=== PATIENT | male | born 1970 | race Hispanic/Latino ===

== ENCOUNTER 2019-08-01 10:38 | Emergency (ER) | payer OTHER ==
--- NOTE | 2019-08-01 11:18 | RAD ---
Chest one view HISTORY: Cough. Dyspnea. Fever. FINDINGS: Cardiac silhouette is magnified by projection. Pulmonary vasculature is unremarkable. Mediastinum is midline. No lobar consolidation or evidence of pneumothorax. site leader leads ove rlie the chest. IMPRESSION : No active cardiopulmonary abnormalities are demonstrated.
[2019-08-01 12:21] LABS: Hemoglobin 13.9 g/dL (14.0-18.0); Mean Corpuscular HGB CONC 34.5 g/dL (32.0-36.0); Mean Corpuscular Hemoglobin 31.2 pg (27.0-31.0); Mean Corpuscular Volume 90.5 fL (78.0-98.0); Mean Platelet Volume 7.5 fL (7.4-10.4); Platelet Count 200 thou/uL (130-400); RBC Distribution Width 11.1 % (11.5-14.5); Red Blood Cell (RBC) Count 4.45 mill/uL (4.70-6.10); White Blood Cell (WBC) Count 8.2 thou/uL (4.8-10.8)
[2019-08-01 12:22] LABS: #Monocytes 0.3 thou/uL (0.11-0.59); #Neutrophils 7.4 thou/uL (1.40-6.50); %Eosinophils 0.1 % (0.0-10.0); %Lymphocytes 5.9 % (21.0-51.0); %Monocytes 4.3 % (0.0-10.0); %Neutrophils 89.7 % (42.0-75.0); MDiff Complete? YES
[2019-08-01 12:36] LABS: ALT (SGPT) 42 U/L (8-55); AST (SGOT) 40 U/L (5-34); Albumin 3.9 g/dL (3.5-5.0); Alkaline Phosphatase 51 U/L (40-110); Anion Gap 13 mmol/L (10-20); BUN (Urea Nitrogen) 10 mg/dL (8.9-20.6); Bilirubin, Total 0.4 mg/dL (0.2-1.2); CK (CPK) 304 U/L (30-200); Calc. Creatinine Clearance 0 mL/min (70-130); Calcium 8.3 mg/dL (7.8-10.44); Carbon Dioxide 26 mmol/L (22-29); Chloride 99 mmol/L (98-107); Estimated GFR-MDRD 84; Globulin 3.4 g/dL (2.4-3.5); Glucose 176 mg/dL (70-105); Lipase 20 U/L (8-78); Potassium 3.2 mmol/L (3.5-5.1); Protein, Total 7.3 g/dL (6.0-8.3); Sodium 135 mmol/L (136-145)
[2019-08-01 18:04] LABS: SARS-CoV-2 MS2 Positive; SARS-CoV-2 N Gene Positive; SARS-CoV-2 S Gene Positive; SARS-CoV-2 orf1ab Positive
--- NOTE | 2019-08-03 14:24 | EKG ---
Test Reason : Blood Pressure : / mmHG Vent. Rate : 126 BPM Atrial Rate : 126 BPM P-R Int : 152 ms QRS Dur : 082 ms QT Int : 300 ms P-R-T Axes : 043 028 028 degrees QTc Int : 434 ms Sinus tachycardia Possible Left atrial enlargement Inferior infarct , age undetermined Abnormal ECG Confirmed by YO PARHAM, SYD ([id number]), editor trade journal VICTORIANO MUNOZ ([id number]) on 08/03/2019 2:23:31 PM Referred By: Confirmed By:SYD RAM MD
== END 2019-08-01 13:00 | disposition home or self-care (01) ==
LOC: MERGE 10:38 → ERS 10:38
DX: U07.1 COVID-19 (principal); R50.9 Fever, unspecified; E86.0 Dehydration
CPT/HCPCS: 71045; 80053; 82550; 83690; 83880; 84484; 85025; 85379; 87635; 93005; 96360; U0002

== ENCOUNTER 2019-08-05 10:46 | Inpatient (IN) | payer OTHER ==
[2019-08-05] MEDS ORDERED: Succinylcholine Chloride 20 MG/ML 10 ml SYRINGE FS ONE (10:55)
[2019-08-05] MEDS ORDERED: Fentanyl 100 MCG/2 ML VIAL ONE ×2 (11:01→11:02)
[2019-08-05] MEDS ORDERED: fentaNYL Citrate/PF 2,000 MCG in Sodium Chloride 0.9% 60 ML IV SCH (11:01)
[2019-08-05] MEDS ORDERED: Rocuronium Bromide 10 MG/ML (10ML VIAL) ONE ×2 (11:10→11:11)
[2019-08-05 11:11] LABS: #Basophils 0.1 thou/uL (0.0-0.2); #Lymphocytes 1.7 thou/uL (1.20-3.40); #Neutrophils 14.1 thou/uL (1.40-6.50); %Basophils 0.7 % (0.0-1.0); %Eosinophils 0.2 % (0.0-10.0); %Lymphocytes 10.2 % (21.0-51.0); %Monocytes 6.1 % (0.0-10.0); %Neutrophils 82.8 % (42.0-75.0); Hemoglobin 13.4 g/dL (14.0-18.0); Mean Corpuscular HGB CONC 33.3 g/dL (32.0-36.0); Mean Corpuscular Hemoglobin 31.1 pg (27.0-31.0); Mean Corpuscular Volume 93.4 fL (78.0-98.0); Mean Platelet Volume 7.7 fL (7.4-10.4); Platelet Count 401 thou/uL (130-400); RBC Distribution Width 11.8 % (11.5-14.5)
[2019-08-05] MEDS ORDERED: Rocuronium Bromide 50 MG/5 ML VIAL ONE (11:11)
[2019-08-05 11:27] LABS: Actual Bicarbonate (HCO3a) 25.9 mEq/L (22-28); Analyzer IN Cardio ER; CO2 Tension 57.6 mmHg (35.0-45.0); Calcium, Ionized 1.07 mmol/L (1.12-1.30); Carboxyhemoglobin (COHb) 0.6 gm% (0.0-3.0); Hemoglobin (Hb) 13.8 g/dL (14.0-18.0); Potassium - ABG Lab 4.04 mmol/L (3.70-5.30); pH, Arterial 7.27 (7.35-7.45)
[2019-08-05 11:29] LABS: O2 Tension (PaO2), arterial 51.4 mmHg (80.0-100.0); Puncture Site RRA
[2019-08-05 11:31] LABS: ALT (SGPT) 56 U/L (8-55); AST (SGOT) 47 U/L (5-34); Albumin 3.4 g/dL (3.5-5.0); Alkaline Phosphatase 73 U/L (40-110); Anion Gap 16 mmol/L (10-20); BUN (Urea Nitrogen) 20 mg/dL (8.9-20.6); Bilirubin, Total 0.6 mg/dL (0.2-1.2); Calc. Creatinine Clearance 0 mL/min (70-130); Carbon Dioxide 26 mmol/L (22-29); Chloride 103 mmol/L (98-107); Estimated GFR-MDRD 70; Globulin 3.5 g/dL (2.4-3.5); Glucose 155 mg/dL (70-105); Potassium 3.9 mmol/L (3.5-5.1); Protein, Total 6.9 g/dL (6.0-8.3); Sodium 141 mmol/L (136-145)
--- NOTE | 2019-08-05 11:31 | RAD ---
EXAM: CHEST ONE VIEW HISTORY: Shortness of breath. Positive COVID-19 COMPARISON: None FINDINGS: Endotracheal tube is noted in place with tip overlying the T5 vertebral and above the level of the ca sandy. Cardiac silhouette is magnified by projection. There are diffuse increased alveolar opacities seen throughout the right lung with alveolar opacities also seen in a left perihilar location primari ly in the left midlung zone. Findings are worrisome for viral pneumonitis. Atypical pneumonia is a differential consideration. No pleural fluid is seen. The osseous structures are intact. IMPRESSION: 1. Findings suggestive of viral pneumonitis. Atypical pneumonia is a possibility. 2. Endotracheal tube noted in place.
[2019-08-05 11:42] LABS: Actual Bicarbonate (HCO3a) 26.3 mEq/L (22-28); Analyzer IN Cardio ER; Base Excess (BEa) -0.8 mEq/L (-2.0 to +3.0); CO2 Tension 53.6 mmHg (35.0-45.0); Calcium, Ionized 1.07 mmol/L (1.12-1.30); Carboxyhemoglobin (COHb) 0.6 gm% (0.0-3.0); Hemoglobin (Hb) 13.6 g/dL (14.0-18.0); Potassium - ABG Lab 3.93 mmol/L (3.70-5.30); pH, Arterial 7.31 (7.35-7.45)
[2019-08-05 11:43] LABS: O2 Tension (PaO2), arterial 58.1 mmHg (80.0-100.0); Puncture Site LRA
--- NOTE | 2019-08-05 12:06 | PDOC.FPRHP ---
Addendum entered and electronically signed by Queenie Cortes MD 08/05/19 18:03 : Unable to obtain PMH: Unknown FHx: Unknown Social: Unknown Original Note: - History of Present Illness Chief Complaint: COVID Positive, AMS History of Present Illness: Pt is a 49 yo male who tested positive for COVID on 08/01/19 who presents with altered mental status, worsening shortness of breath. He was noted by family to have fevers since his positive test. He was found to be altered this morning and family decided to call EMS. EMS noted him to be febrile, 101.7, and initially 92% no RA. In route he decompensated to sats of 61%. EMS placed non-rebreather increasing sats to 91%. In ED he had sats drop to 41% requiring intubation. In the ED pt was fluid resuscitated, tylenol adminstered, and azithromycin initiated. PCP: [facility] Call - Allergies/Adverse Reactions Allergies Allergy/AdvReac Type Severity Reaction Status Date / Time No Known Allergies Allergy Unverified 08/05/19 14:28 - History PMHx: PSHx: FHx: Social: - Review of Systems ROS unobtainable: due to endotracheal tube - Vital signs BP: 96/75, MAP: 82, Pulse: 95, Resp: VENT, Temp: 99.1 (Criticore Temp), Pain: UTR, O2 sat: 90 on (Ventilator), Time: 08/05/2019 13:16. Wt: 82kg FMR H&P: Results - Labs Result Diagrams: 08/05/19 10:48 08/05/19 10:48 Lab results: WBC 17.0 thou/uL (4.8-10.8) H 08/05/19 10:48 Hgb 13.4 g/dL (14.0-18.0) L 08/05/19 10:48 Hct 40.2 % (42.0-52.0) L 08/05/19 10:48 MCV 93.4 fL (78.0-98.0) 08/05/19 10:48 Plt Count 401 thou/uL (130-400) H 08/05/19 10:48 Neutrophils % 82.8 % (42.0-75.0) H 08/05/19 10:48 ABG pH 7.31 (7.35-7.45) L 08/05/19 11:29 ABG pCO2 53.6 mmHg (35.0-45.0) H 08/05/19 11:29 ABG pO2 58.1 mmHg (80.0-100.0) L* 08/05/19 11:29 Sodium 141 mmol/L (136-145) 08/05/19 10:48 Potassium 3.9 mmol/L (3.5-5.1) 08/05/19 10:48 Chloride 103 mmol/L (98-107) 08/05/19 10:48 Carbon Dioxide 26 mmol/L (22-29) 08/05/19 10:48 BUN 20 mg/dL (8.9-20.6) 08/05/19 10:48 Creatinine 1.11 mg/dL (0.7-1.3) 08/05/19 10:48 Glucose 155 mg/dL (70-105) H 08/05/19 10:48 Lactic Acid 2.7 mmol/L (0.5-2.2) H 08/05/19 10:48 Calcium 8.0 mg/dL (7.8-10.44) 08/05/19 10:48 Total Bilirubin 0.6 mg/dL (0.2-1.2) 08/05/19 10:48 AST 47 U/L (5-34) H 08/05/19 10:48 ALT 56 U/L (8-55) H 08/05/19 10:48 Alkaline Phosphatase 73 U/L (40-110) 08/05/19 10:48 Serum Total Protein 6.9 g/dL (6.0-8.3) 08/05/19 10:48 Albumin 3.4 g/dL (3.5-5.0) L 08/05/19 10:48 - Radiology Interpretation Chest x-ray Status: image reviewed by me, report reviewed by me Additional comment: bilateraly increased alveolar opacities suggestive of viral pneumonitis FMR H&P: A/P - Problem List (1) COVID-19 Current Visit: Yes Status: Acute Code(s): U07.1 - COVID-19 (2) Acute respiratory failure with hypoxia and hypercapnia Current Visit: Yes Status: Acute Code(s): J96.01 - ACUTE RESPIRATORY FAILURE WITH HYPOXIA; J96.02 - ACUTE RESPIRATORY FAILURE WITH HYPERCAPNIA - Plan Pt is a 49 yo with acute respiratory decompensation w/ hypoxia, hypercapnia and altered mental status: # COVID Positive - start hydroxychloroquine, azithromycin, ceftriaxone - will initiate anticoagulation based on D-Dimer - 30 cc/kg initiated in ED - tylenol prn - monitor kidney function, D-Dimer, CRP; CXR is suggestive of viral pneumonitis # Acute Respiratory Failure w/ Hypoxia and Hypercapnia - pt currently intubated - admit to CCU - Consider initiation of steroids # Metabolic Acidosis 2/2 Lactic Acidosis, Hypercapnia - fluid resuscitate - ventilator support - trend lactic acid # Transaminitis - trend # Hyperglycemia - start protocol # Leukocytosis - monitor resolution with current treatment Fluids: Diet: NPO Code: VTE: lovenox prophylactic dose Dispo: Admit to CCU for > 48 hour stay Addendum - Attending - Attending Attestation Date/Time: 08/05/19 8863 I personally evaluated the patient and discussed the management with Dr. Wilder /Sebastian. I agree with the History, Examination, Assessment and Plan documented above with any addition or exceptions noted below. Patient is 49 yo M with no known PMHx presenting with hypoxemia and AMS. History obtained from ER records. Patient had been feeling unwell for about the last 7-9 day. Had COVID testing performed on 07/31 that resulted as positive. This morning, became acutely dyspneic and had AMS. EMS found patient to have hypoxia and transferred here where sats noted to be in 40s%. Patient intubated for acute hypoxemic respiratory failure 2/2 COVID-19 viral pneumonia. He was also febrile on admission. Sats improved to 90s% on 100%FiO2, PEEP 10. Lab evaluation shows highly elevated CRP, D-Dimer. Elevated AST/ALT. Normal renal function at this time. CXR substantially worsened since previous, showing bilateral interstitial infiltrates with some cannonball appearance. Patient will be admitted to CCU, trend inflammatory markers. Vent per Pulm. Rocephin, Azithro, Plaquenil, Lovenox 40mg BID for increased anticoagulation given his rising D-Dimer and concern for future thrombosis, will check Xa level tomorrow. Will attempt to obtain convalescent plasma. Further mgmt pending clinical course and Pulm recommendations regarding other therapies such as Tocilizumab. Will discuss case with family and attempt to obtain further information regarding illness progression.
[2019-08-05] MEDS ORDERED: Hydroxychloroquine Sulfate 200 MG TAB PO SCH (12:15)
[2019-08-05] MEDS ORDERED: cefTRIAXone\\ROCEPHIN 1 GM VIAL ONE (12:51)
[2019-08-05 12:54] LABS: INR-International Normal Ratio 1.2; Prothrombin Time 14.8 SEC (12.0-14.7)
[2019-08-05 13:10] LABS: D-Dimer Test 14.4 *mcg/mL (0.27-0.43)
[2019-08-05] MEDS ORDERED: Ventilator Sedation Protocol 1 EACH FS SCH (13:37)
[2019-08-05] MEDS ORDERED: Tocilizumab 400 MG in Sodium Chloride 0.9% 80 ML IV SCH (13:45)
[2019-08-05] MEDS ORDERED: Lorazepam 2 MG/ML VIAL ONE (14:02)
[2019-08-05] MEDS ORDERED: Vecuronium 10 MG VIAL ONE (14:02)
[2019-08-05] MEDS ORDERED: Sterile Water 10 ML ONE (14:03)
[2019-08-05 14:04] LABS: Lactic Acid 2.1 mmol/L (0.5-2.2)
[2019-08-05] MEDS ORDERED: Propofol BOLUS 1,000 MG/100 ML VIAL IV PRN (14:12)
[2019-08-05] MEDS ORDERED: Fentanyl BOLUS 250 ML IVPB PRN (14:12)
[2019-08-05] MEDS ORDERED: Morphine 2 MG/ML SYRINGE SLOW IVP PRN (14:12)
[2019-08-05] MEDS ORDERED: Acetaminophen 325 MG TAB PO PRN (14:18)
[2019-08-05] MEDS ORDERED: Azithromycin 500 MG in Sodium Chloride 0.9% 250 ML 250 ML IVPB SCH ×2 (14:30→18:22)
[2019-08-05 15:35] LABS: Actual Bicarbonate (HCO3a) 23.9 mEq/L (22-28); CO2 Tension 40.6 mmHg (35.0-45.0); Calcium, Ionized 1.02 mmol/L (1.12-1.30); Carboxyhemoglobin (COHb) 1.1 gm% (0.0-3.0); Hemoglobin (Hb) 14.3 g/dL (14.0-18.0); O2 Tension (PaO2), arterial 63.5 mmHg (80.0-100.0); Potassium - ABG Lab 4.38 mmol/L (3.70-5.30); Puncture Site RRA; pH, Arterial 7.39 (7.35-7.45)
[2019-08-05] MEDS: Hydroxychloroquine Sulfate 400 MG, Simple Syrup 8 ML, Water For Irrigation 8 ML PER TUBE SCH ×2 (15:46→20:44)
[2019-08-05] MEDS ORDERED: Acetaminophen 650 MG Suppository PR PRN (18:26)
--- NOTE | 2019-08-05 18:49 | PDOC.BPN ---
- Brief Progress Note Called (with help of language line): She confirmed that patient today is day 14 of symptoms starting with fever. 1 week of cough. SOB two days ago when he went to ER. No known travel or COVID+ exposure. Confirmed full code status. PMH: Denies Meds: Not on any chronically but had been taking antibiotics rx by a doctor- unsure what for Surgical Hx: Denies Social: Denies TAD
[2019-08-05] MEDS: Propofol 1,000 MG/100 ML VIAL IV PRN ×2 (19:25→20:19)
[2019-08-05] MEDS: Famotidine/PF 20 mg/2ml Vial SLOW IVP SCH (19:25)
[2019-08-05] MEDS: Lorazepam 2 MG/ML VIAL SLOW IVP PRN (19:26)
[2019-08-05] MEDS: Enoxaparin Sodium 40 MG/0.4 ML SYRINGE SC SCH (19:26)
--- NOTE | 2019-08-05 20:45 | CON ---
DATE OF CONSULTATION: 08/05/2019 HISTORY OF PRESENT ILLNESS: A 49-year-old male, who had a COVID screen done apparently on the that was positive. He was admitted today with hypoxemia and respiratory distress. He has been intubated. He is transferred out of the Critical Care Unit. Apparently, he is Ukrainian- speaking. PAST MEDICAL HISTORY: Unknown. FAMILY HISTORY: Unknown. SOCIAL HISTORY: Unknown. REVIEW OF SYSTEMS: Cannot be obtained. PHYSICAL EXAMINATION: VITAL SIGNS: Blood pressure is 102/79, heart rate is in 80s, respiratory rates in the 20s, and he is afebrile now. On arrival, he was prone ventilated, he was on 100%, and had a PO2 in the 80s with 10 of PEEP. Tocilizumab has been ordered for him. An application has been put in for convalescent plasma. His chest radiograph shows diffuse alveolar infiltrates. If this was not a COVID environment, I would bet that he had a terrible upper lobe bacterial pneumonia with ARDS given the density of his right upper lobe infiltrate. I suppose he could have both. He will be kept sedated and chemically paralyzed. He will be prone ventilated. His inflammatory markers will be measured in a serial fashion. Hopefully within a few days, we can get him some convalescent plasma. Obviously, his prognosis is quite guarded at this time. This is a 70 min consult with greater than 50% of the time spent on the unit with coordination of care. Job ID: [id number] MTDD
[2019-08-05] MEDS ORDERED: Hydroxychloroquine Sulfate 200 MG TAB PO ONE (21:00)
[2019-08-06] MEDS ORDERED: Lactated Ringer's 1,000 ML IV SCH ×2 (03:15→04:30)
[2019-08-06 04:51] LABS: ALT (SGPT) 43 U/L (8-55); AST (SGOT) 38 U/L (5-34); Albumin 2.6 g/dL (3.5-5.0); Alkaline Phosphatase 62 U/L (40-110); Anion Gap 14 mmol/L (10-20); BUN (Urea Nitrogen) 36 mg/dL (8.9-20.6); Bilirubin, Total 0.6 mg/dL (0.2-1.2); Calc. Creatinine Clearance 71 mL/min (70-130); Calcium 7.1 mg/dL (7.8-10.44); Carbon Dioxide 25 mmol/L (22-29); Chloride 109 mmol/L (98-107); Estimated GFR-MDRD 53; Glucose 125 mg/dL (70-105); Magnesium 2.5 mg/dL (1.6-2.6); Potassium 4.1 mmol/L (3.5-5.1); Protein, Total 5.6 g/dL (6.0-8.3); Sodium 144 mmol/L (136-145)
[2019-08-06 04:54] LABS: Band 13 % (5-11); Hemoglobin 11.5 g/dL (14.0-18.0); Hypochromia SLIGHT = 6-15 cells (100X) (0-5/hpf); Lymphocytes 10 % (21-51); MDiff Complete? YES; Mean Corpuscular HGB CONC 33.7 g/dL (32.0-36.0); Mean Corpuscular Hemoglobin 31.6 pg (27.0-31.0); Mean Corpuscular Volume 93.9 fL (78.0-98.0); Mean Platelet Volume 8.2 fL (7.4-10.4); Metamyelocyte 9 % (0-0); Monocytes 1 % (0-10); Neutrophil 67 % (42-75); Platelet Count 180 thou/uL (130-400); Platelet Morphology Comment Appears Adequate; Red Blood Cell (RBC) Count 3.64 mill/uL (4.70-6.10); White Blood Cell (WBC) Count 10.1 thou/uL (4.8-10.8)
--- NOTE | 2019-08-06 06:56 | PDOC.FM ---
- Subjective Subjective: Patient sedated & intubated. Currently proned. - Objective MAR Reviewed: Yes Vital Signs & Weight: Vital Signs (12 hours) Temp Pulse Resp BP Pulse Ox 08/06/19 06:48 67 08/06/19 05:59 24 H 08/06/19 04:00 98.5 F 24 H 08/06/19 03:55 71 08/06/19 02:00 24 H 08/05/19 23:54 24 H 08/05/19 23:22 73 93/74 08/05/19 23:00 98.7 F 08/05/19 22:00 24 H 08/05/19 20:00 24 H 100 08/05/19 19:15 82 08/05/19 19:00 98.6 F Weight Weight 82 kg Most Recent Monitor Data Heart Rate from ECG 66 NIBP 102/78 NIBP BP-Mean 86 Respiration from ECG 24 SpO2 100 I&O: 08/04/19 08/05/19 08/06/19 06:59 06:59 06:59 Intake Total 1675.8 Output Total 1600 Balance 75.8 Result Diagrams: 08/06/19 04:15 08/06/19 04:15 Phys Exam - Physical Examination Constitutional: NAD sedated & intubated HEENT: moist MMs currently intubated on mechanical ventilation equal rise & fall of chest Musculoskeletal: no edema Deviation from normal: unable to assess Skin: no rash, normal turgor Dx/Plan (1) COVID-19 Code(s): U07.1 - COVID-19 Status: Acute (2) Acute respiratory failure with hypoxia and hypercapnia Code(s): J96.01 - ACUTE RESPIRATORY FAILURE WITH HYPOXIA; J96.02 - ACUTE RESPIRATORY FAILURE WITH HYPERCAPNIA Status: Acute (3) Transaminitis Code(s): R74.0 - NONSPEC ELEV OF LEVELS OF TRANSAMNS & LACTIC ACID DEHYDRGNSE Status: Acute - Plan Plan: Pt is a 49 yo with acute respiratory decompensation w/ hypoxia, hypercapnia and altered mental status: #Acute Respiratory Failure w/ Hypoxia and Hypercapnia requiring mechanical ventilation 2/2 COVID pneumonia - continue hydroxychloroquine, azithromycin, ceftriaxone - 40mg BID lovenox, pending anti Xa - On mechanical ventilation, pulmonology on board: SIMV: FiO2 70%, TV 450cc, PEEP 12, RR 24 - tylenol prn - Plan for convalescent plasma at noon today - Will dec fluids #HASEEB -1.43, s/p 1L bolus, will start gentle fluids, monitor to not ensure fluid overload especially in setting of COVID19 -Monitor UO -Repeat BMP in AM #COVID19 positive -Tested positive 07/31 -COVID19 precautions # Transaminitis -likely 2/2 disease process -downtrending #Lactic acidosis -resolved Sedation: Propofol Abx/Meds: Rocephin, Azithromycin, Plaquenil Fluids: LR 50cc Lines: 2 peripheral, ETT, OGT Diet: NPO Code:Full VTE: lovenox prophylactic dose Dispo: Admit to CCU for > 48 hour stay Addendum - Attending - Attending Attestation Date/Time: 08/06/19 1789 I personally evaluated the patient and discussed the management with Dr. Cortes. I agree with the History, Examination, Assessment and Plan documented above with any addition or exceptions noted below. Patient continues to be critical but stable. In prone position, has improved oxygenation and decrease in FiO2 requirement. Continue Rocephin, Azithro, Plaquenil. He is s/p Tocilizumab. Inflammatory markers continue to increase. Giving mild IV fluids but titrate to adequate UOP as not to be aggressive with volume expansion. Awaiting convalescent plasma today. Continue to trend CXR, inflammatory markers, Pulm on board for [facility].
[2019-08-06 07:19] LABS: Hemoglobin A1c 5.7 % (4.0-6.0)
[2019-08-06] MEDS: Enoxaparin Sodium 40 MG/0.4 ML SYRINGE SC SCH ×2 (07:35→19:45)
[2019-08-06] MEDS: Famotidine/PF 20 mg/2ml Vial SLOW IVP SCH ×2 (07:35→19:46)
[2019-08-06] MEDS: Hydroxychloroquine Sulfate 200 MG, Simple Syrup 4 ML, Water For Irrigation 4 ML PER TUBE SCH ×2 (07:37→20:31)
[2019-08-06] MEDS: Azithromycin 500 MG in Sodium Chloride 0.9% 250 ML 250 ML IVPB SCH (07:38)
[2019-08-06] MEDS: Propofol 1,000 MG/100 ML VIAL IV PRN ×2 (07:39→17:31)
--- NOTE | 2019-08-06 07:58 | RAD ---
RADIOGRAPH CHEST 1 VIEW: DATE: 08/06/2019 TIME: 5:21 AM HISTORY: 49-year-old male in respiratory failure COMPARISON: 08/05/2019 FINDINGS: Endotracheal tube distal tip at mid thoracic trachea slightly retracted, now 4.5 cm superior to ayaka a. New esophagogastric tube placed. No cardiomegaly. Diffuse bilateral heterogeneously distributed alveolar infiltrates have not significant changed. prone positioning makes this insensitive for pneum othorax detection. IMPRESSION: 1. Interval placement of esophagogastric tube. 2. Slight adjustment to endotracheal tube position. 3. No interval change in the severe bilateral alveolar infiltrates.
[2019-08-06] MEDS: Lactated Ringer's 1,000 ML IV SCH ×2 (08:42→19:55)
[2019-08-06] MEDS ORDERED: cefTRIAXone\\ROCEPHIN 1 GM in Sodium Chloride 0.9% 100 ML IVPB SCH (09:00)
[2019-08-06] MEDS ORDERED: Hydroxychloroquine Sulfate 200 MG TAB PO SCH (09:00)
--- NOTE | 2019-08-06 12:13 | PRG ---
DATE OF SERVICE: 08/06/2019 SUBJECTIVE: Pacheco Isabel remains hemodynamically stable. He is still prone ventilated. His FiO2 was turned down to 50% this morning. OBJECTIVE: VITAL SIGNS: His heart rate in the 70s, blood pressure has been stable. He is afebrile now. LUNGS: Unchanged. HEART: Unchanged. ABDOMEN: Unchanged. LABORATORY DATA: White count 10.1, hemoglobin 11.5, platelets 180. Sodium 144, potassium 4.1, chloride 109, bicarb 25, BUN 36, creatinine 1.43. C-reactive protein 30. He received yesterday. IMPRESSION: COVID-19 pneumonia with possible superimposed bacterial pneumonia with respiratory failure, requiring prone ventilation. He appears to be clinically improved with prone ventilation. Hopefully, we can get convalescent plasma for him here in the next few days. He will be started on methylprednisolone and he is already on Lovenox 40 mg twice a day. Critical care time 35 min. Job ID: [id number] MTDD
[2019-08-06] MEDS ORDERED: Bacteriostatic Normal Saline 30 ML VIAL ONE (13:59)
[2019-08-06] MEDS ORDERED: Vecuronium 10 MG VIAL ONE ×2 (13:59→15:54)
[2019-08-06] MEDS ORDERED: Azithromycin 500 MG in Sodium Chloride 0.9% 250 ML 250 ML IVPB SCH ×2 (14:00→21:00)
[2019-08-06] MEDS: Lorazepam 2 MG/ML VIAL SLOW IVP PRN ×3 (14:35→18:41)
[2019-08-06] MEDS: fentaNYL Citrate/PF 2,000 MCG in Sodium Chloride 0.9% 60 ML IV SCH (17:31)
[2019-08-06] MEDS: cefTRIAXone\\ROCEPHIN 1 GM in Sodium Chloride 0.9% 100 ML IVPB SCH (19:44)
[2019-08-07] MEDS: Propofol 1,000 MG/100 ML VIAL IV PRN ×5 (03:19→21:20)
[2019-08-07 04:28] LABS: ALT (SGPT) 36 U/L (8-55); AST (SGOT) 35 U/L (5-34); Albumin 2.6 g/dL (3.5-5.0); Alkaline Phosphatase 66 U/L (40-110); Anion Gap 13 mmol/L (10-20); BUN (Urea Nitrogen) 27 mg/dL (8.9-20.6); Bilirubin, Total 0.8 mg/dL (0.2-1.2); CRP (Inflammatory) 16.94 mg/dL (= or < 0.5); Calc. Creatinine Clearance 126 mL/min (70-130); Calcium 7.5 mg/dL (7.8-10.44); Carbon Dioxide 27 mmol/L (22-29); Chloride 112 mmol/L (98-107); Estimated GFR-MDRD Greater than 90; Globulin 3.1 g/dL (2.4-3.5); Glucose 93 mg/dL (70-105); Potassium 3.9 mmol/L (3.5-5.1); Protein, Total 5.7 g/dL (6.0-8.3); Sodium 148 mmol/L (136-145)
[2019-08-07 04:52] LABS: Band 21 % (5-11); Eosinophils 1 % (0-10); Hemoglobin 11.9 g/dL (14.0-18.0); Lymphocytes 12 % (21-51); MDiff Complete? YES; Mean Corpuscular HGB CONC 33.3 g/dL (32.0-36.0); Mean Corpuscular Hemoglobin 30.9 pg (27.0-31.0); Mean Corpuscular Volume 92.6 fL (78.0-98.0); Mean Platelet Volume 8.6 fL (7.4-10.4); Monocytes 1 % (0-10); Neutrophil 65 % (42-75); Nucleated RBC 4 % (0); Platelet Count 164 thou/uL (130-400); Platelet Morphology Comment Appears Adequate; RBC Distribution Width 12.2 % (11.5-14.5); Red Blood Cell (RBC) Count 3.86 mill/uL (4.70-6.10); White Blood Cell (WBC) Count 10.5 thou/uL (4.8-10.8)
--- NOTE | 2019-08-07 07:37 | PDOC.FM ---
- Subjective Subjective: NAEO. Nurse reports stable. Was placed supine for two hours yesterday and now prone this morning. Still intubated & sedated, did require increase of sedation overnight due to sedation. - Objective MAR Reviewed: Yes Vital Signs & Weight: Vital Signs (12 hours) Pulse Resp 08/07/19 07:17 64 08/07/19 05:17 58 L 08/07/19 04:00 24 H 08/07/19 02:00 24 H 08/07/19 00:00 24 H 08/06/19 22:14 63 08/06/19 22:00 24 H Weight Admit Weight 80.467 kg Weight 82.5 kg Most Recent Monitor Data Heart Rate from ECG 58 NIBP 130/90 NIBP BP-Mean 103 Respiration from ECG 24 SpO2 98 I&O: 08/06/19 08/07/19 08/08/19 06:59 06:59 06:59 Intake Total 1675.8 1008.8 Output Total 1600 2025 Balance 75.8 -1016.2 Result Diagrams: 08/07/19 03:30 08/07/19 03:30 Phys Exam - Physical Examination Constitutional: NAD intubated & sedated [id number] HEENT: moist MMs crackles diffusely Cardiovascular: RRR, no significant murmur Musculoskeletal: no edema unable to assess Dx/Plan (1) COVID-19 Code(s): U07.1 - COVID-19 Status: Acute (2) Acute respiratory failure with hypoxia and hypercapnia Code(s): J96.01 - ACUTE RESPIRATORY FAILURE WITH HYPOXIA; J96.02 - ACUTE RESPIRATORY FAILURE WITH HYPERCAPNIA Status: Acute (3) Transaminitis Code(s): R74.0 - NONSPEC ELEV OF LEVELS OF TRANSAMNS & LACTIC ACID DEHYDRGNSE Status: Acute - Plan Plan: Pt is a 49 yo with acute respiratory decompensation w/ hypoxia, hypercapnia and altered mental status: #Acute Respiratory Failure w/ Hypoxia and Hypercapnia requiring mechanical ventilation 2/2 COVID pneumonia - continue hydroxychloroquine, azithromycin, ceftriaxone - 40mg BID lovenox, anti Xa 0.27 (therapeutic: 0.4). Can discuss with pharmacy/ Dr. Moulton - On mechanical ventilation, pulmonology on board: SIMV: FiO2 70% > 40%, TV 450cc, PEEP 12, RR 24 - Plan for convalescent plasma at noon today - KVO, continue supportive care #Hypernatremia 2/2 free water deficit -Down 2.8L in free water -Starting OGTube feeds today -Recheck in AM -If worsens or not improved either adjust OGT feeds to inc. free water or start D5W #HASEEB, resolved #COVID19 positive -Tested positive 07/31 -COVID19 precautions # Transaminitis -likely 2/2 disease process -downtrending #Lactic acidosis -resolved Sedation: Propofol, fentanyl Abx/Meds: Rocephin, Azithromycin, Plaquenil Fluids: KVO Lines: 2 peripheral, ETT, OGT Diet: NPO Code:Full VTE: lovenox 40mg BID Dispo: Admit to CCU for > 48 hour stay Addendum - Attending - Attending Attestation Date/Time: 08/07/19 9625 I personally evaluated the patient and discussed the management with Dr. Cortes. I agree with the History, Examination, Assessment and Plan documented above with any addition or exceptions noted below. Patient overall stable. Inflammatory markers improved somewhat after convalescent plasma and Tocilizumab therapy. Oxygenating well in prone positioning. Pulm on board. Continue Rocephin, Azithro, Plaquenil. He is on steroids. Need to monitor sodium balance with initiation of tube feeds with water flushes due to mild hypernatremia. Good UOP. Renal function stable. Continue serial inflammatory markers and CXRs.
[2019-08-07] MEDS: Azithromycin 500 MG in Sodium Chloride 0.9% 250 ML 250 ML IVPB SCH (07:57)
[2019-08-07] MEDS: Famotidine/PF 20 mg/2ml Vial SLOW IVP SCH ×2 (07:58→21:19)
[2019-08-07] MEDS: Enoxaparin Sodium 40 MG/0.4 ML SYRINGE SC SCH ×2 (07:58→21:18)
[2019-08-07] MEDS: methylPREDNISolone Sod Succ 40 MG VIAL IVP SCH (07:58)
[2019-08-07] MEDS: Hydroxychloroquine Sulfate 200 MG, Simple Syrup 4 ML, Water For Irrigation 4 ML PER TUBE SCH ×2 (08:32→21:20)
--- NOTE | 2019-08-07 09:06 | RAD ---
CHEST 1 VIEW: Date: 08/07/2019 HISTORY: Ventilated patient. COMPARISON: Radiograph prior day. FINDINGS: Patient intubated with endotracheal tube tip at level of the clavicles. Multifocal air space opacitie s are similar to slightly improved. No pneumothorax. No effusion. No acute osseous abnormality. IMPRESSION: Slight interval improvement to lung aeration. POS: HOME
[2019-08-07] MEDS: fentaNYL Citrate/PF 2,000 MCG in Sodium Chloride 0.9% 60 ML IV SCH (14:02)
[2019-08-07] MEDS ORDERED: Vecuronium 10 MG VIAL ONE (14:03)
[2019-08-07] MEDS: Lorazepam 2 MG/ML VIAL SLOW IVP PRN (14:04)
--- NOTE | 2019-08-07 19:29 | PRG ---
DATE OF SERVICE: 08/07/2019 SUBJECTIVE: Mr. Isabel is clinically improved. OBJECTIVE: VITAL SIGNS: He is on 40% FiO2 this morning in the prone position, he is on 50% in the supine position. Respiratory rate is 24, blood pressure 143/94, oximetry is 93 to 94. He received his convalescent plasma yesterday. LUNGS: Unchanged. HEART: Unchanged. ABDOMEN: Unchanged. LABORATORY DATA: White count 10.5, hemoglobin 11.9, platelets 164. Sodium 140, potassium 3.9, chloride 112, bicarb 27, BUN 27, creatinine 0.82. C-reactive protein is down to 16.9, procalcitonin is 1.7. IMPRESSION: COVID-19 pneumonia with possible superimposed bacterial pneumonia. Blood cultures are negative. He appears to be improving with his IL-6 inhibitors, convalescent plasma, and prone ventilation. We will continue supportive care. CRITICAL CARE TIME: 30 minutes. Job ID: [id number]
[2019-08-07] MEDS: cefTRIAXone\\ROCEPHIN 1 GM in Sodium Chloride 0.9% 100 ML IVPB SCH (21:19)
[2019-08-08 04:46] LABS: Band 22 % (5-11); Hemoglobin 12.8 g/dL (14.0-18.0); Hypochromia SLIGHT = 6-15 cells (100X) (0-5/hpf); Lymphocytes 11 % (21-51); MDiff Complete? YES; Mean Corpuscular Hemoglobin 32.1 pg (27.0-31.0); Mean Corpuscular Volume 91.7 fL (78.0-98.0); Mean Platelet Volume 8.7 fL (7.4-10.4); Metamyelocyte 5 % (0-0); Monocytes 10 % (0-10); Neutrophil 52 % (42-75); Platelet Count 162 thou/uL (130-400); Platelet Morphology Comment Appears Adequate; RBC Distribution Width 11.8 % (11.5-14.5); Red Blood Cell (RBC) Count 4.01 mill/uL (4.70-6.10); White Blood Cell (WBC) Count 14.9 thou/uL (4.8-10.8)
[2019-08-08 04:48] LABS: ALT (SGPT) 38 U/L (8-55); AST (SGOT) 35 U/L (5-34); Albumin 2.7 g/dL (3.5-5.0); Alkaline Phosphatase 70 U/L (40-110); Anion Gap 15 mmol/L (10-20); BUN (Urea Nitrogen) 23 mg/dL (8.9-20.6); CRP (Inflammatory) 7.72 mg/dL (= or < 0.5); Calc. Creatinine Clearance 137 mL/min (70-130); Calcium 7.4 mg/dL (7.8-10.44); Carbon Dioxide 22 mmol/L (22-29); Chloride 110 mmol/L (98-107); Estimated GFR-MDRD Greater than 90; Globulin 3.4 g/dL (2.4-3.5); Glucose 137 mg/dL (70-105); Potassium 3.9 mmol/L (3.5-5.1); Protein, Total 6.1 g/dL (6.0-8.3); Sodium 143 mmol/L (136-145)
--- NOTE | 2019-08-08 06:13 | PDOC.FM ---
- Subjective Subjective: Currently intubated and sedated. Per nursing he will start coughing requiring increased sedation. - Objective MAR Reviewed: Yes Vital Signs & Weight: Vital Signs (12 hours) Pulse Resp BP Pulse Ox 08/08/19 05:50 24 H 08/08/19 04:00 24 H 08/08/19 02:41 56 L 121/85 08/08/19 02:00 24 H 08/08/19 00:00 24 H 08/07/19 22:38 56 L 135/88 08/07/19 22:00 24 H 08/07/19 20:00 24 H 97 08/07/19 19:02 67 116/80 Weight Admit Weight 80.467 kg Weight 83.3 kg Most Recent Monitor Data Heart Rate from ECG 60 NIBP 132/90 NIBP BP-Mean 104 Respiration from ECG 24 SpO2 95 I&O: 08/06/19 08/07/19 08/08/19 06:59 06:59 06:59 Intake Total 1675.8 1008.8 1710.9 Output Total 1600 5 1455 Balance 75.8 -1016.2 255.9 Result Diagrams: 08/08/19 04:00 08/08/19 04:00 Phys Exam - Physical Examination Intubated and sedated. Diffuse crackles Cardiovascular: RRR Gastrointestinal: soft Musculoskeletal: edema present (trace) Dx/Plan - Plan Plan: 49yo admitted for acute hypoxic, hypercapnic respiratory failure and encephalopathy Acute hypoxic, hypercapnic respiratory failure requiring mechanical ventilation 2/2 COVID-19 pneumonia - Continue hydroxychloroquine, azithromycin, ceftriaxone - Prophylaxtic Lovenox 40mg BID - On mechanical ventilation, pulmonology on board. Start weaning today. - s/p convalescent plasma 08/06, Tocilizumab 08/04 - KVO, continue supportive care Hypernatremia, resolved - Continue OG Tube feeds HASEEB, resolved COVID19 positive - Tested positive 07/31 - COVID19 precautions Transaminitis - likely 2/2 disease process - downtrending Lactic acidosis, resolved Sedation: Propofol, fentanyl, Ativan for breakthrough Abx/Meds: Rocephin, Azithromycin, Plaquenil Fluids: KVO Lines: 2 peripheral, ETT, OGT Diet: OG feeds Code Status:Full VTE: lovenox 40mg BID Addendum - Attending - Attending Attestation Date/Time: 08/08/19 6011 I personally evaluated the patient and discussed the management with Dr. Banks I agree with the History, Examination, Assessment and Plan documented above with any addition or exceptions noted below - Intubated. Afebrile VSS. A/P: 1) Acute hypoxic resp failure secondary to COVID-19- s/p tocilizumab and convalscent plasma. Continue vent support; wean as per pulmonary. CRP improving.
[2019-08-08] MEDS: Propofol 1,000 MG/100 ML VIAL IV PRN ×3 (06:25→23:52)
--- NOTE | 2019-08-08 07:46 | RAD ---
EXAM: CHEST ONE VIEW HISTORY: None follow-up for respiratory failure. Positive COVID. COMPARISON: 06/24/2019 FINDINGS: Endotracheal tube and nasogastric tube remain in place. Cardiac silhouette is magnified by projection . Multifocal alveolar opacities are again seen within the lungs bilaterally without significant interval improvement when compared to prior study given differences in technique. No pleural fluid is appreciated. No other interval change. IMPRESSION: Multifocal alveolar opacities not significantly changed when compared to prior exam. Given patient's history, findings are likely compatible with viral pneumonitis.
[2019-08-08] MEDS: Enoxaparin Sodium 40 MG/0.4 ML SYRINGE SC SCH ×2 (08:45→21:24)
[2019-08-08] MEDS: Famotidine/PF 20 mg/2ml Vial SLOW IVP SCH ×2 (08:45→21:24)
[2019-08-08] MEDS: Azithromycin 500 MG in Sodium Chloride 0.9% 250 ML 250 ML IVPB SCH (08:45)
[2019-08-08] MEDS: methylPREDNISolone Sod Succ 40 MG VIAL IVP SCH (08:45)
[2019-08-08] MEDS: Hydroxychloroquine Sulfate 200 MG, Simple Syrup 4 ML, Water For Irrigation 4 ML PER TUBE SCH ×2 (09:04→21:34)
--- NOTE | 2019-08-08 10:50 | PRG ---
DATE OF SERVICE: 08/08/2019 SUBJECTIVE: Mr. Isabel is clinically stable without being last night. Hemodynamics are stable. OBJECTIVE: VITAL SIGNS: His heart rate in the 60s, blood pressure 114/77, respiratory rate is per mechanical ventilation. LUNGS: . ABDOMEN: Unchanged. LABORATORY DATA: White count 14.9, hemoglobin 12.8, and platelets are 162. Sodium 143, potassium 3.9, chloride 110, bicarb 22, BUN 23, creatinine 0.76. C- reactive protein is down to 7. Procalcitonin is 0.85. Albumin is 2.7. IMPRESSION: 1. Respiratory failure associated COVID-19. 2. Possible superimposed bacterial pneumonia. 3. Chest radiograph is unchanged. We will continue supportive care. He is not currently weanable, but he is making progress. Nutrition needs to be started. Critical care time 30 min Job ID: [id number] MTDD
[2019-08-08] MEDS: fentaNYL Citrate/PF 2,000 MCG in Sodium Chloride 0.9% 60 ML IV SCH (17:10)
[2019-08-08] MEDS: cefTRIAXone\\ROCEPHIN 1 GM in Sodium Chloride 0.9% 100 ML IVPB SCH (21:23)
[2019-08-09] MEDS: Lorazepam 2 MG/ML VIAL SLOW IVP PRN (01:35)
[2019-08-09 06:18] LABS: Band 19 % (5-11); Lymphocytes 13 % (21-51); MDiff Complete? YES; Mean Corpuscular Hemoglobin 31.8 pg (27.0-31.0); Mean Corpuscular Volume 93.4 fL (78.0-98.0); Metamyelocyte 1 % (0-0); Monocytes 2 % (0-10); Neutrophil 65 % (42-75); Platelet Count 169 thou/uL (130-400); Platelet Morphology Comment Appears Adequate; RBC Distribution Width 12.2 % (11.5-14.5); Red Blood Cell (RBC) Count 3.78 mill/uL (4.70-6.10); White Blood Cell (WBC) Count 15.6 thou/uL (4.8-10.8)
[2019-08-09 06:25] LABS: Albumin 2.7 g/dL (3.5-5.0); Anion Gap 15 mmol/L (10-20); BUN (Urea Nitrogen) 24 mg/dL (8.9-20.6); Bilirubin, Total 0.6 mg/dL (0.2-1.2); Calc. Creatinine Clearance 144 mL/min (70-130); Calcium 7.7 mg/dL (7.8-10.44); Carbon Dioxide 21 mmol/L (22-29); Chloride 112 mmol/L (98-107); Estimated GFR-MDRD Greater than 90; Globulin 3.1 g/dL (2.4-3.5); Glucose 145 mg/dL (70-105); Potassium 3.7 mmol/L (3.5-5.1); Protein, Total 5.8 g/dL (6.0-8.3); Sodium 144 mmol/L (136-145)
[2019-08-09 06:26] LABS: ALT (SGPT) 83 U/L (8-55); AST (SGOT) 73 U/L (5-34); Alkaline Phosphatase 65 U/L (40-110); CRP (Inflammatory) 3.53 mg/dL (= or < 0.5)
[2019-08-09] MEDS: Propofol 1,000 MG/100 ML VIAL IV PRN ×3 (06:26→18:57)
--- NOTE | 2019-08-09 07:15 | PDOC.FM ---
- Subjective Subjective: NAEO. Patient currently intubated, sedated. No concerns per nursing. - Objective MAR Reviewed: Yes Vital Signs & Weight: Vital Signs (12 hours) Temp Pulse Resp BP Pulse Ox 08/09/19 06:00 18 08/09/19 04:00 97.7 F 18 08/09/19 03:12 75 112/75 08/09/19 02:00 18 08/09/19 01:00 97.7 F 08/09/19 00:21 75 120/81 08/09/19 00:00 20 08/08/19 22:15 77 119/80 08/08/19 22:00 32 H 08/08/19 20:00 18 94 L Weight Admit Weight 80.467 kg Weight 81.4 kg Most Recent Monitor Data Heart Rate from ECG 69 NIBP 107/79 NIBP BP-Mean 88 Respiration from ECG 18 SpO2 96 I&O: 08/08/19 08/09/19 08/10/19 06:59 06:59 06:59 Intake Total 1710.9 2410 Output Total 1455 2055 Balance 255.9 355 Result Diagrams: 08/09/19 05:52 08/09/19 05:53 Phys Exam - Physical Examination Constitutional: NAD HEENT: moist MMs, sclera anicteric no secretions noted Respiratory: clear to auscultation bilateral Cardiovascular: RRR Gastrointestinal: soft, no distention non pitting edema in all extremities sedated Skin: no rash, normal turgor, cap refill <2 seconds Dx/Plan (1) Acute respiratory failure with hypoxia and hypercapnia Code(s): J96.01 - ACUTE RESPIRATORY FAILURE WITH HYPOXIA; J96.02 - ACUTE RESPIRATORY FAILURE WITH HYPERCAPNIA Status: Acute (2) COVID-19 Code(s): U07.1 - COVID-19 Status: Acute (3) Transaminitis Code(s): R74.0 - NONSPEC ELEV OF LEVELS OF TRANSAMNS & LACTIC ACID DEHYDRGNSE Status: Acute - Plan Plan: 49yo admitted for acute hypoxic, hypercapnic respiratory failure and encephalopathy Acute hypoxic, hypercapnic respiratory failure requiring mechanical ventilation / COVID-19 pneumonia - COVID test POSITIVE 07/31, covid precautions - s/p convalescent plasma 08/06, Tocilizumab 08/04; Qtc prolonged this morning to 514 - will hold hydroxychloroquine today, patient has had 6/8 doses. - Possible superimposed bacterial pneumonia - continue azithromycin x 5 days, ceftriaxone. Procal downtrending. - Prophylaxtic Lovenox 40mg BID; D-dimer >20. - On mechanical ventilation, pulmonology on board. Continue trying to wean as possible. Settings: SIMV, FIO2 50, TV 450, RR 18, Peak pressure 36, Peep 9. Continue prone positioning. CXR daily, currently stable. - KVO, Continue supportive care Hypernatremia, resolved - Continue OG Tube feeds HASEEB, resolved Transaminitis - likely 2/2 disease process - Will continue to trend Lactic acidosis, resolved Sedation: Propofol, fentanyl, Ativan for breakthrough Abx/Meds: Rocephin, Azithromycin, Plaquenil Fluids: KVO Lines: 2 peripheral, ETT, OGT Diet: OG feeds Code Status:Full VTE: lovenox 40mg BID Case discussed with Dr. Lux Addendum - Attending - Attending Attestation Date/Time: 08/09/19 8965 I personally evaluated the patient and discussed the management with Dr. Dodson I agree with the History, Examination, Assessment and Plan documented above with any addition or exceptions noted below - Patient intubated. Afebrile VSS A/P: 1) Acute hypoxic respiratory failure secondary to COVID-19 PNA- Cntinue vent support; wean as tolerated per pulmonary. 2) COVID-19 PNA- Plaquenil on hold due to prolonged QT; zithromax discontinued. Continue rocephin.
--- NOTE | 2019-08-09 07:55 | RAD ---
Chest one view HISTORY: Dyspnea. Pneumonia. Follow-up. COMPARISON: 08/08/2019. FINDINGS: Cardiac silhouette is magnified by projection. Pulmonary vasculature upper limits of normal . Mediastinum is midline. Lines and tubes are unchanged in position. Patchy areas of peripheral parenchymal infiltrate throughout each lung are unchanged. No evidence of pneumothorax. environmental monitoring technician leads overlie the chest. IMPRESSION : Bilateral infiltrates and other findings are stable.
[2019-08-09] MEDS: Enoxaparin Sodium 40 MG/0.4 ML SYRINGE SC SCH ×2 (09:38→19:38)
[2019-08-09] MEDS: Azithromycin 500 MG in Sodium Chloride 0.9% 250 ML 250 ML IVPB SCH (09:38)
[2019-08-09] MEDS: Famotidine/PF 20 mg/2ml Vial SLOW IVP SCH ×2 (09:38→19:39)
[2019-08-09] MEDS: Hydroxychloroquine Sulfate 200 MG, Simple Syrup 4 ML, Water For Irrigation 4 ML PER TUBE SCH ×2 (09:39→22:09)
[2019-08-09] MEDS: methylPREDNISolone Sod Succ 40 MG VIAL IVP SCH (09:39)
--- NOTE | 2019-08-09 16:41 | PRG ---
DATE OF SERVICE: 08/09/2019 SUBJECTIVE: Pacheco Isabel continues to have improvement in his gas exchange. His respiratory rate has been turned down today. OBJECTIVE: VITAL SIGNS: His blood pressure is 137/92, heart rate is 102, respiratory rates in the 20s, minute volume is about 8 L a minute. His airway pressures are not high. Physical exam is otherwise unchanged. PLAN: We will continue to decrease his ventilatory rate a little bit each day rate of 12 today. Plan to decrease his rate to 6 or 8 in the morning. turned down the morning as well. Overall, he continues to improve. Critical care time 30 min. Job ID: [id number] MTDD
[2019-08-09] MEDS: cefTRIAXone\\ROCEPHIN 1 GM in Sodium Chloride 0.9% 100 ML IVPB SCH (19:37)
[2019-08-10] MEDS: Propofol 1,000 MG/100 ML VIAL IV PRN ×4 (00:45→11:10)
[2019-08-10 05:54] LABS: Actual Bicarbonate (HCO3a) 26.6 mEq/L (22-28); Analyzer IN Cardio OR; Base Excess (BEa) 1.7 mEq/L (-2.0 to +3.0); CO2 Tension 42.9 mmHg (35.0-45.0); Calcium, Ionized 1.16 mmol/L (1.12-1.30); Carboxyhemoglobin (COHb) 0.6 gm% (0.0-3.0); Hemoglobin (Hb) 12.4 g/dL (14.0-18.0); Potassium - ABG Lab 3.77 mmol/L (3.70-5.30); pH, Arterial 7.41 (7.35-7.45)
--- NOTE | 2019-08-10 06:51 | PDOC.FM ---
- Subjective Subjective: NAEO. Patient ventilated/sedated. Patient resting comfortably in bed. No apparent discharge. Nursing requesting medication for BP as it has been creeping up as the sedation has been weened. - Objective MAR Reviewed: Yes Vital Signs & Weight: Vital Signs (12 hours) Temp Pulse Resp BP Pulse Ox 08/10/19 05:55 17 08/10/19 04:00 19 08/10/19 02:34 62 128/89 08/10/19 02:00 15 08/10/19 00:17 59 L 135/90 08/10/19 00:00 14 08/09/19 22:06 60 118/80 08/09/19 22:00 17 08/09/19 21:00 98.6 F 08/09/19 20:00 22 H 96 08/09/19 18:50 73 108/76 Weight Admit Weight 80.467 kg Weight 82.4 kg Most Recent Monitor Data Heart Rate from ECG 74 NIBP 138/94 NIBP BP-Mean 108 Respiration from ECG 23 SpO2 96 I&O: 08/08/19 08/09/19 08/10/19 06:59 06:59 06:59 Intake Total 1710.9 2410 1773 Output Total 1455 2055 1765 Balance 255.9 355 8 Result Diagrams: 08/11/19 03:36 08/11/19 03:36 Phys Exam - Physical Examination Constitutional: NAD HEENT: moist MMs, sclera anicteric Neck: supple Respiratory: clear to auscultation bilateral Cardiovascular: RRR Gastrointestinal: soft non pitting edema improved from previous open eyes spontaneously, does not follow commands, purposeful movements Skin: no rash, normal turgor, cap refill <2 seconds Dx/Plan (1) Acute respiratory failure with hypoxia and hypercapnia Code(s): J96.01 - ACUTE RESPIRATORY FAILURE WITH HYPOXIA; J96.02 - ACUTE RESPIRATORY FAILURE WITH HYPERCAPNIA Status: Acute (2) COVID-19 Code(s): U07.1 - COVID-19 Status: Acute (3) Transaminitis Code(s): R74.0 - NONSPEC ELEV OF LEVELS OF TRANSAMNS & LACTIC ACID DEHYDRGNSE Status: Acute - Plan Plan: 49yo admitted for acute hypoxic, hypercapnic respiratory failure and encephalopathy Acute hypoxic, hypercapnic respiratory failure requiring mechanical ventilation 2/2 COVID-19 pneumonia - COVID test POSITIVE 07/31, covid precautions - s/p convalescent plasma 08/06, Tocilizumab 08/04; Qtc prolonged this morning to 514 - will dc hydroxychloroquine, patient had 6/8 doses. - Possible superimposed bacterial pneumonia - dc'd azithromycin; ceftriaxone. Procal downtrending. - Prophylaxtic Lovenox 40mg BID; D-dimer >20. - On mechanical ventilation, pulmonology on board. Continue trying to wean as possible. Settings: SIMV, FIO2 50, TV 450, RR 12, Peak pressure 22, Peep 9. Continue prone positioning. CXR daily, currently stable. Continues to improve. - KVO, Continue supportive care Hypernatremia, resolved - Continue OG Tube feeds HASEEB, resolved Transaminitis - likely 2/2 disease process - Will continue to trend Lactic acidosis, resolved HTN - Will add PRNS. If BP continues to be elevated can consider longer term medication such as amlodipine. Sedation: Propofol, fentanyl, Ativan for breakthrough Abx/Meds: Rocephin Fluids: KVO Lines: 2 peripheral, ETT, OGT Diet: OG feeds Code Status:Full VTE: lovenox 40mg BID Case discussed with Dr. Lux Addendum - Attending - Attending Attestation Date/Time: 08/11/19 1101 I personally evaluated the patient and discussed the management with Dr. Dodson on 08/10/2019 I agree with the History, Examination, Assessment and Plan documented above with any addition or exceptions noted below- Patient intubated; more awake. Afebrile VSS. A/P: 1) Acute respiratory failure secondary to COVID-19 PNA- improving; weaning vent as per pulmonary. Continue ceftriazone.
[2019-08-10 07:15] LABS: O2 Tension (PaO2), arterial 56.7 mmHg (80.0-100.0)
[2019-08-10 07:16] LABS: ALV-art Gradient 246.175 (0-20)
[2019-08-10 07:29] LABS: Mean Corpuscular HGB CONC 33.7 g/dL (32.0-36.0); Mean Corpuscular Hemoglobin 31.4 pg (27.0-31.0); Mean Corpuscular Volume 93.3 fL (78.0-98.0); Mean Platelet Volume 8.2 fL (7.4-10.4); Platelet Count 204 thou/uL (130-400); Red Blood Cell (RBC) Count 4.15 mill/uL (4.70-6.10)
[2019-08-10] MEDS: Famotidine/PF 20 mg/2ml Vial SLOW IVP SCH ×2 (07:31→19:24)
[2019-08-10] MEDS: methylPREDNISolone Sod Succ 40 MG VIAL IVP SCH (07:31)
[2019-08-10] MEDS: Enoxaparin Sodium 40 MG/0.4 ML SYRINGE SC SCH ×2 (07:31→19:24)
[2019-08-10 07:48] LABS: ALT (SGPT) 125 U/L (8-55); AST (SGOT) 82 U/L (5-34); Albumin 3.1 g/dL (3.5-5.0); Alkaline Phosphatase 70 U/L (40-110); Anion Gap 16 mmol/L (10-20); BUN (Urea Nitrogen) 22 mg/dL (8.9-20.6); Bilirubin, Total 0.8 mg/dL (0.2-1.2); CRP (Inflammatory) 2.24 mg/dL (= or < 0.5); Calc. Creatinine Clearance 145 mL/min (70-130); Calcium 7.9 mg/dL (7.8-10.44); Carbon Dioxide 22 mmol/L (22-29); Chloride 109 mmol/L (98-107); Estimated GFR-MDRD Greater than 90; Globulin 3.5 g/dL (2.4-3.5); Glucose 113 mg/dL (70-105); Potassium 3.9 mmol/L (3.5-5.1); Protein, Total 6.6 g/dL (6.0-8.3); Sodium 143 mmol/L (136-145)
--- NOTE | 2019-08-10 07:52 | RAD ---
Exam: Chest one view HISTORY:Respiratory distress. Pneumonia. Intubated patient Comparison: 08/09/2019 FINDINGS: Lines and tubes: Stable endotracheal tube and nasogastric tube. Cardiac silhouette: Normal Aorta: Unremarkable Pulmonary vessels: Normal Costophrenic angles: Clear LUNGS: Stable multifocal interstitial and alveolar opacities. Pneumothorax: None Osseous abnormalities: None IMPRESSION: No significant interval change.
[2019-08-10 09:04] LABS: Band 9 % (5-11); Eosinophils 1 % (0-10); Lymphocytes 20 % (21-51); MDiff Complete? YES; Metamyelocyte 1 % (0-0); Monocytes 3 % (0-10); Myelocyte 1 % (0-0); Neutrophil 65 % (42-75); Nucleated RBC 1 % (0); Platelet Morphology Comment Appears Adequate; RBC Morphology Normal
--- NOTE | 2019-08-10 10:04 | PRG ---
DATE OF SERVICE: 08/10/2019 SUBJECTIVE: Mr. Isabel remains mechanically ventilated. Heart rate is in 70s, blood pressure 108/81. FiO2 was turned up to 50% this morning after blood gas, pO2 is in the 50s. His intake and output coming in to today is essentially neutral. He is plus 600 mL in last 2 days. His exam is overall unchanged. LABORATORY DATA: White count 17.0, hemoglobin 13.0, platelets 204,000. Sodium 143, potassium 3.9, chloride 109, bicarb 22, BUN 22, creatinine 0.7, . PH 7.41, CO2 42, pO2 56. IMPRESSION: Respiratory failure associated with COVID-19 with possible superimposed bacterial pneumonia. Overall, he is slowly improving. Decreased PEEP, decreased his rate and decreased his FiO2 to 45%. If we get him down to 40% FiO2, then we can consider switching him to Precedex letting him wake up and consider weaning to high-flow oxygen. Critical care time 30 min. Job ID: [id number] MTDD
[2019-08-10] MEDS: fentaNYL Citrate/PF 2,000 MCG in Sodium Chloride 0.9% 60 ML IV SCH (10:17)
[2019-08-10] MEDS: Lorazepam 2 MG/ML VIAL SLOW IVP PRN (11:10)
[2019-08-10] MEDS ORDERED: hydrALAZINE 20 MG/ML VIAL SLOW IVP PRN (11:34)
[2019-08-10] MEDS: cefTRIAXone\\ROCEPHIN 1 GM in Sodium Chloride 0.9% 100 ML IVPB SCH (19:24)
[2019-08-11 04:07] LABS: ALT (SGPT) 163 U/L (8-55); AST (SGOT) 86 U/L (5-34); Alkaline Phosphatase 70 U/L (40-110); Anion Gap 13 mmol/L (10-20); BUN (Urea Nitrogen) 19 mg/dL (8.9-20.6); Bilirubin, Total 0.9 mg/dL (0.2-1.2); Calc. Creatinine Clearance 145 mL/min (70-130); Calcium 7.8 mg/dL (7.8-10.44); Carbon Dioxide 23 mmol/L (22-29); Chloride 107 mmol/L (98-107); Estimated GFR-MDRD Greater than 90; Globulin 2.7 g/dL (2.4-3.5); Glucose 106 mg/dL (70-105); Magnesium 1.8 mg/dL (1.6-2.6); Potassium 3.8 mmol/L (3.5-5.1); Protein, Total 5.7 g/dL (6.0-8.3); Sodium 139 mmol/L (136-145)
[2019-08-11 04:20] LABS: Band 5 % (5-11); Hemoglobin 12.7 g/dL (14.0-18.0); Lymphocytes 19 % (21-51); MDiff Complete? YES; Mean Corpuscular HGB CONC 34.1 g/dL (32.0-36.0); Mean Corpuscular Hemoglobin 31.4 pg (27.0-31.0); Mean Corpuscular Volume 92.1 fL (78.0-98.0); Mean Platelet Volume 8.2 fL (7.4-10.4); Metamyelocyte 1 % (0-0); Monocytes 1 % (0-10); Neutrophil 74 % (42-75); Nucleated RBC 1 % (0); Platelet Count 241 thou/uL (130-400); Platelet Morphology Comment Appears Adequate; RBC Distribution Width 12.6 % (11.5-14.5); Red Blood Cell (RBC) Count 4.05 mill/uL (4.70-6.10); White Blood Cell (WBC) Count 12.9 thou/uL (4.8-10.8)
--- NOTE | 2019-08-11 06:45 | PDOC.FM ---
- Subjective Subjective: NAEO. Patient was extubated yesterday and has been doing well on HFNC. The patient was sitting up in bed, resting. States that his breathing is good. He was asking for a diet this morning and tolerating a full liquid breakfast. He does feel weak overall. - Objective MAR Reviewed: Yes Vital Signs & Weight: Vital Signs (12 hours) Pulse BP Pulse Ox 08/11/19 02:00 98 08/10/19 20:12 82 167/108 H 08/10/19 19:44 99 Weight Admit Weight 80.467 kg Weight 81.9 kg Most Recent Monitor Data Heart Rate from ECG 79 NIBP 137/85 NIBP BP-Mean 102 Respiration from ECG 27 SpO2 98 I&O: 08/09/19 08/10/19 08/11/19 06:59 06:59 06:59 Intake Total 2410 1773 360 Output Total 8161 1765 3010 Balance 355 8 -1640 Result Diagrams: 08/11/19 03:36 08/11/19 03:36 Phys Exam - Physical Examination Constitutional: NAD HEENT: moist MMs, sclera anicteric HFNC in place Neck: supple, full ROM Respiratory: clear to auscultation bilateral Cardiovascular: RRR Gastrointestinal: soft Musculoskeletal: no edema Neurological: moves all 4 limbs moves all limbs, conversating, follows commands, weaker overall Psychiatric: normal affect Skin: no rash, normal turgor, cap refill <2 seconds Dx/Plan (1) Acute respiratory failure with hypoxia and hypercapnia Code(s): J96.01 - ACUTE RESPIRATORY FAILURE WITH HYPOXIA; J96.02 - ACUTE RESPIRATORY FAILURE WITH HYPERCAPNIA Status: Acute (2) COVID-19 Code(s): U07.1 - COVID-19 Status: Acute (3) Transaminitis Code(s): R74.0 - NONSPEC ELEV OF LEVELS OF TRANSAMNS & LACTIC ACID DEHYDRGNSE Status: Acute - Plan Plan: 49yo admitted for acute hypoxic, hypercapnic respiratory failure and encephalopathy Acute hypoxic, hypercapnic respiratory failure requiring mechanical ventilation 2/2 COVID-19 pneumonia - COVID test POSITIVE 07/31, covid precautions - s/p convalescent plasma 08/06, Tocilizumab 08/04; Qtc prolonged this morning to 514 - dc'd hydroxychloroquine, patient had 6/8 doses. - Possible superimposed bacterial pneumonia - dc'd azithromycin; on ceftriaxone. Procal downtrending. - Prophylaxtic Lovenox 40mg BID; D-dimer >20. - Self extubated 5/6; currently on HFNC and satting well. Try to ween as tolerated. - Pulmonology on board. Appreciate recommendations - KVO, Continue supportive care, added diet, PT/OT if possible Deconditioned - PT/OT consulted. If unable to treat, can try to get the nurse to work with him on some exercises to gain strength. Hypernatremia, resolved - Continue OG Tube feeds HASEEB, resolved Transaminitis - likely 2/2 disease process - Will continue to trend Lactic acidosis, resolved HTN - PRNs availabe, BPs improved from yesterday. Abx/Meds: Rocephin Diet: Full liquid, can advance if tolerating Code Status:Full VTE: lovenox 40mg BID Dispo: pending clinical course Case discussed with Dr. Lux Addendum - Attending - Attending Attestation Date/Time: 08/11/19 1105 I personally evaluated the patient and discussed the management with Dr. Dodson I agree with the History, Examination, Assessment and Plan documented above with any addition or exceptions noted below - Patient extubated on HFNC. Denies any SOB. Afebrile VSS. A/P: 1) Acute respiratory failure secondary to COVID-19 PNA- improved; wean HFNC as tolerated. Will need PT. Started on clears.
--- NOTE | 2019-08-11 07:58 | RAD ---
EXAM: CHEST ONE VIEW HISTORY: Mainor follow-up evaluation. Patient on ventilator. COMPARISON: 08/10/2019 FINDINGS: Endotracheal tube and nasogastric tubes have been removed. Multifocal interstitial and alveolar opaci ties are again seen within the lungs bilaterally. Given differences in technique, there is been no significant interval change in the bilateral opacities. No other interval change. IMPRESSION: Interval removal of endotracheal tube and nasogastric tubes with persistent bilateral multifocal inte rstitial and alveolar opacities suggesting bilateral pneumonia and possibly atypical pneumonia. Viral pneumonitis is a possibility. Continued follow-up to resolution is recommended.
[2019-08-11] MEDS: Enoxaparin Sodium 40 MG/0.4 ML SYRINGE SC SCH ×2 (08:52→20:34)
[2019-08-11] MEDS: methylPREDNISolone Sod Succ 40 MG VIAL IVP SCH (08:52)
--- NOTE | 2019-08-11 17:22 | PRG ---
DATE OF SERVICE: 08/11/2019 SUBJECTIVE: Pacheco Isabel has been weaned down to a nasal cannula. OBJECTIVE: VITAL SIGNS: His heart rate is 80, blood pressure 136/90, respiratory rates in the teens to low 20s, oximetry is in the 90s. Physical exam is otherwise unchanged. LABORATORY DATA: White count 12.9, hemoglobin 12.7, platelets 241. Electrolytes are unremarkable. AST is 86, ALT is 163, alkaline phosphatase 70, albumin is 3. IMPRESSION AND PLAN: COVID-19 pneumonia with possible superimposed bacterial pneumonia, now clinically doing well after 1 week of mechanical ventilation. We can stop daily radiographs on him. Lab frequency can be decreased. He can be moved out of the critical care unit in my opinion. Job ID: [id number]
[2019-08-11] MEDS: Cefdinir 300 MG CAP PO SCH (20:35)
--- NOTE | 2019-08-12 06:51 | PDOC.FM ---
- Subjective Subjective: NAEO. Patient resting comfortably in bed. Tolerating diet. Was able to void this AM, but did feel weak walking to the bathroom and SOB. While resting, patient states that he feels good. States that his breathing is better. Denies any chest pain, NVD, palpitations. States that he has been able to talk to his family and that he is wanting to go home. - Objective MAR Reviewed: Yes Vital Signs & Weight: Vital Signs (12 hours) Pulse Ox 08/12/19 06:46 96 08/11/19 20:00 96 Weight Admit Weight 80.467 kg Weight 75.8 kg Most Recent Monitor Data Heart Rate from ECG 74 NIBP 130/93 NIBP BP-Mean 105 Respiration from ECG 22 SpO2 98 I&O: 08/10/19 08/11/19 08/12/19 06:59 06:59 06:59 Intake Total 1773 360 330 Output Total 1765 3010 2330 Balance Result Diagrams: 08/12/19 06:19 08/12/19 06:19 Phys Exam - Physical Examination Constitutional: NAD HEENT: moist MMs, sclera anicteric Neck: full ROM Respiratory: clear to auscultation bilateral Cardiovascular: RRR Gastrointestinal: soft Neurological: moves all 4 limbs Psychiatric: normal affect Skin: no rash, normal turgor, cap refill <2 seconds Dx/Plan (1) Acute respiratory failure with hypoxia and hypercapnia Code(s): J96.01 - ACUTE RESPIRATORY FAILURE WITH HYPOXIA; J96.02 - ACUTE RESPIRATORY FAILURE WITH HYPERCAPNIA Status: Acute (2) COVID-19 Code(s): U07.1 - COVID-19 Status: Acute (3) Transaminitis Code(s): R74.0 - NONSPEC ELEV OF LEVELS OF TRANSAMNS & LACTIC ACID DEHYDRGNSE Status: Acute - Plan Plan: 49yo admitted for acute hypoxic, hypercapnic respiratory failure and encephalopathy Acute hypoxic, hypercapnic respiratory failure requiring mechanical ventilation / COVID-19 pneumonia - COVID test POSITIVE 07/31, covid precautions - s/p convalescent plasma 08/06, Tocilizumab 08/04; Qtc prolonged this morning to 514 - dc'd hydroxychloroquine, patient had 6/8 doses. - Possible superimposed bacterial pneumonia - dc'd azithromycin and ceftriaxone. Procal downtrending. Transitioned to PO cefdinir and prednisone. - Prophylaxtic Lovenox 40mg BID; D-dimer >20 -> 19. - Self extubated 5/6; currently on NC and satting well. Try to ween as tolerated. Russell hawkins. - Pulmonology on board. Appreciate recommendations - KVO, Continue supportive care, added diet, PT/OT if possible - Transfer to medical Deconditioned - PT/OT consulted. If unable to treat, can try to get the nurse to work with him on some exercises to gain strength. Hypernatremia, resolved - Continue OG Tube feeds HASEEB, resolved Transaminitis - likely 2/2 disease process - Will continue to trend Lactic acidosis, resolved HTN - PRNs availabe; BPs occasionally still elevated. This will need to be followed up outpatient. Code Status:Full VTE: lovenox 40mg BID Dispo: pending clinical course Case discussed with Dr. Lux Addendum - Attending - Attending Attestation Date/Time: 08/12/19 1200 I personally evaluated the patient and discussed the management with Dr. Dodson I agree with the History, Examination, Assessment and Plan documented above with any addition or exceptions noted below- Patient wihtout complaints. SOB and weak with walking. Afebrile VSS. A/P: 1) COVID pneumonia- recovering; wean O2 as tolerated. 2) Deconditioning- start PT; may need placement versus home health with [facility].
[2019-08-12 07:05] LABS: Hemoglobin 13.5 g/dL (14.0-18.0); Mean Corpuscular Hemoglobin 31.1 pg (27.0-31.0); Mean Corpuscular Volume 91.5 fL (78.0-98.0); Mean Platelet Volume 8.1 fL (7.4-10.4); Platelet Count 244 thou/uL (130-400); RBC Distribution Width 12.7 % (11.5-14.5); Red Blood Cell (RBC) Count 4.34 mill/uL (4.70-6.10); White Blood Cell (WBC) Count 9.7 thou/uL (4.8-10.8)
[2019-08-12 07:08] LABS: ALT (SGPT) 174 U/L (8-55); AST (SGOT) 88 U/L (5-34); Albumin 3.3 g/dL (3.5-5.0); Alkaline Phosphatase 72 U/L (40-110); Anion Gap 16 mmol/L (10-20); BUN (Urea Nitrogen) 17 mg/dL (8.9-20.6); Bilirubin, Total 1.3 mg/dL (0.2-1.2); Calc. Creatinine Clearance 139 mL/min (70-130); Calcium 8.5 mg/dL (7.8-10.44); Carbon Dioxide 20 mmol/L (22-29); Chloride 105 mmol/L (98-107); Estimated GFR-MDRD Greater than 90; Globulin 2.8 g/dL (2.4-3.5); Glucose 94 mg/dL (70-105); Magnesium 1.9 mg/dL (1.6-2.6); Potassium 3.8 mmol/L (3.5-5.1); Protein, Total 6.1 g/dL (6.0-8.3); Sodium 137 mmol/L (136-145)
[2019-08-12] MEDS: predniSONE 20 MG TAB PO SCH (07:54)
[2019-08-12 08:07] LABS: Band 7 % (5-11); Lymphocytes 15 % (21-51); MDiff Complete? YES; Monocytes 3 % (0-10); Neutrophil 69 % (42-75); Platelet Morphology Comment Appears Adequate; RBC Morphology Normal; Reactive Lymphocytes 6 % (0-10)
[2019-08-12] MEDS: Enoxaparin Sodium 40 MG/0.4 ML SYRINGE SC SCH ×2 (08:32→20:33)
[2019-08-12] MEDS: Cefdinir 300 MG CAP PO SCH ×2 (08:32→20:33)
--- NOTE | 2019-08-12 09:36 | PRG ---
DATE OF SERVICE: 08/12/2019 SUBJECTIVE: Pacheco Isabel is doing well. He will be transferred out of the critical care unit today. He is on a 2 L cannula. OBJECTIVE: VITAL SIGNS: Have been stable. LUNGS: Unchanged. HEART: Unchanged. ABDOMEN: Unchanged. LABORATORY DATA: White count 9.7, hemoglobin 13.5, platelets 244. Electrolytes are unremarkable. Liver enzymes are still mildly elevated. IMPRESSION: COVID-19 pneumonia with possible superimposed bacterial process. He has been switched to p.o. antibiotics. He is on prednisone. He is still on intermediate dose Lovenox, which in my opinion should continue. We will follow from a distance upon transfer. Job ID: [id number]
--- NOTE | 2019-08-12 11:18 | RAD ---
FRONTAL RADIOGRAPH CHEST: Date: 08/12/2019 COMPARISON: Multiple prior chest radiographs dating back to 08/05/2019. HISTORY: Pneumonia. FINDINGS: There are scattered areas of interstitial and alveolar opacity involving bilateral perihilar regions as well as the bilateral mid lung zones and bilateral lung bases. When compared to 08/11/2019, there has been no significant interval change. Interstitial and alveolar opacities have improved since 04/2019. IMPRESSION: Nonspecific bilateral interstitial and alveolar opacity as detailed above, suggesting multifocal infe ctious pneumonitis. POS: [facility]
--- NOTE | 2019-08-13 06:52 | PDOC.FM ---
- Subjective Subjective: NAEO. Patient resting comfortably in bed. Tolerating PO. Feels weak overall, but walking around room, to and from bathroom. Denies any chest pain, NVD, SOB, cough. - Objective MAR Reviewed: Yes Vital Signs & Weight: Vital Signs (12 hours) Temp Pulse Resp BP Pulse Ox 08/13/19 03:09 89 18 120/83 93 L 08/12/19 20:05 94 L 08/12/19 20:00 97.8 F 99 18 103/70 94 L Weight Admit Weight 80.467 kg Weight 75.8 kg Most Recent Monitor Data Heart Rate from ECG 95 NIBP 123/85 NIBP BP-Mean 97 Respiration from ECG 28 SpO2 98 I&O: 08/11/19 08/12/19 08/13/19 06:59 06:59 06:59 Intake Total 430 736 3850 Output Total 3010 2330 350 Balance -2649 -1999 1295 Result Diagrams: 08/12/19 06:19 08/12/19 06:19 Phys Exam - Physical Examination Constitutional: NAD HEENT: moist MMs, sclera anicteric Neck: supple, full ROM Respiratory: clear to auscultation bilateral Cardiovascular: RRR Gastrointestinal: soft Musculoskeletal: no edema Neurological: moves all 4 limbs Psychiatric: normal affect, A&O x 3 Skin: no rash, normal turgor, cap refill <2 seconds Dx/Plan (1) Acute respiratory failure with hypoxia and hypercapnia Code(s): J96.01 - ACUTE RESPIRATORY FAILURE WITH HYPOXIA; J96.02 - ACUTE RESPIRATORY FAILURE WITH HYPERCAPNIA Status: Acute (2) COVID-19 Code(s): U07.1 - COVID-19 Status: Acute (3) Transaminitis Code(s): R74.0 - NONSPEC ELEV OF LEVELS OF TRANSAMNS & LACTIC ACID DEHYDRGNSE Status: Acute - Plan Plan: 49yo admitted for acute hypoxic, hypercapnic respiratory failure and encephalopathy Acute hypoxic, hypercapnic respiratory failure requiring mechanical ventilation 2/2 COVID-19 pneumonia - COVID test POSITIVE 07/31, covid precautions - s/p plasma 5.3, tocilizumab 08/04, hydroxychloroquine (6/8 doses) 08/04 - Possible superimposed bacterial pneumonia - dc'd azithromycin and ceftriaxone. Procal downtrending. Transitioned to PO cefdinir 5/7 and prednisone on 08/11. - Prophylaxtic Lovenox 40mg BID; D-dimer >20 -> 19. - Self extubated 08/09; currently on NC and satting well. Try to ween as tolerated. - Pulmonology on board. Appreciate recommendations - Continue supportive care, tolerating PO, PT/OT 1-2 x daily to help gain strength - CM consulted - TIPP program will re-eval on Thursday - Will reswab patient today for COVID and if negative will dc precautions. Patient is >10 days since symptoms first appeared and has been >72 hrs without fever Deconditioned - PT/OT consulted. Transaminitis - likely 2/2 disease process - Will continue to trend Hypernatremia, resolved HASEEB, resolved Lactic acidosis, resolved HTN - PRNs availabe; BPs occasionally still elevated. This will need to be followed up outpatient. Code Status:Full VTE: lovenox 40mg BID Dispo: pending clinical course, continue to work with PT Case discussed with Dr. Lux Addendum - Attending - Attending Attestation Date/Time: 08/13/19 7246 I personally evaluated the patient and discussed the management with Dr. Dodson I agree with the History, Examination, Assessment and Plan documented above with any addition or exceptions noted below - Patient without complaints. Afebrile VSS. A/P: 1) COVID-19 PNA - recovering. Will swab today and if negative will d/c precautions. 2) Deconditioning- continue PT.
[2019-08-13] MEDS: predniSONE 20 MG TAB PO SCH (08:20)
[2019-08-13] MEDS: Cefdinir 300 MG CAP PO SCH ×2 (08:21→20:13)
[2019-08-13] MEDS: Enoxaparin Sodium 40 MG/0.4 ML SYRINGE SC SCH ×2 (08:21→20:13)
[2019-08-13 17:13] LABS: SARS-CoV-2 MS2 Positive; SARS-CoV-2 N Gene Positive; SARS-CoV-2 S Gene Positive; SARS-CoV-2 orf1ab Positive
--- NOTE | 2019-08-14 07:10 | PDOC.FM ---
- Subjective Subjective: NAEO. Patient resting comfortably in bed. NO concerns per nursing. Patient reports no issues with breathing. States he wears oxygen at home- will call niece to clarify this at home. Denies any chest pain, palpitations, NVD. Patient tolerating PO, voiding/stooling normally, ambulating. - Objective MAR Reviewed: Yes Vital Signs & Weight: Vital Signs (12 hours) Temp Pulse Resp BP Pulse Ox 08/14/19 03:49 98.5 F 92 18 112/78 94 L 08/14/19 00:04 98.6 F 99 18 128/84 93 L 08/13/19 20:39 97.8 F 105 H 20 107/74 99 Weight Admit Weight 80.467 kg Weight 79.2 kg Most Recent Monitor Data Heart Rate from ECG 95 NIBP 123/85 NIBP BP-Mean 97 Respiration from ECG 28 SpO2 98 I&O: 08/13/19 08/14/19 08/15/19 06:59 06:59 06:59 Intake Total 1645 1600 Output Total 350 Balance 1295 1600 Result Diagrams: 08/12/19 06:19 08/12/19 06:19 Phys Exam - Physical Examination Constitutional: NAD HEENT: moist MMs, sclera anicteric Neck: supple, full ROM Respiratory: clear to auscultation bilateral Cardiovascular: RRR Gastrointestinal: soft Neurological: non-focal, moves all 4 limbs Psychiatric: normal affect, A&O x 3 Skin: no rash, normal turgor, cap refill <2 seconds Dx/Plan (1) Acute respiratory failure with hypoxia and hypercapnia Code(s): J96.01 - ACUTE RESPIRATORY FAILURE WITH HYPOXIA; J96.02 - ACUTE RESPIRATORY FAILURE WITH HYPERCAPNIA Status: Acute (2) COVID-19 Code(s): U07.1 - COVID-19 Status: Acute (3) Transaminitis Code(s): R74.0 - NONSPEC ELEV OF LEVELS OF TRANSAMNS & LACTIC ACID DEHYDRGNSE Status: Acute - Plan Plan: 49yo admitted for acute hypoxic, hypercapnic respiratory failure and encephalopathy Acute hypoxic, hypercapnic respiratory failure requiring mechanical ventilation / COVID-19 pneumonia - COVID test POSITIVE 07/31, covid precautions. Re-swabbed on 08/12 and remains positive. - s/p plasma 5.3, tocilizumab 08/04, hydroxychloroquine (09/11 doses) 08/04 - Possible superimposed bacterial pneumonia - dc'd azithromycin and ceftriaxone. Procal downtrending. Transitioned to PO cefdinir 08/10 and prednisone on 08/11. - Prophylaxtic Lovenox 40mg BID; D-dimer >20 -> 19. - Self extubated 08/09; currently on NC and satting well. Try to ween as tolerated. - Pulmonology on board. Appreciate recommendations - Continue supportive care, tolerating PO, PT/OT 1-2 x daily to help gain strength - CM consulted - TIPP program will re-eval on Thursday Deconditioned - PT/OT consulted. Transaminitis - likely 2/2 disease process Hypernatremia, resolved HASEEB, resolved Lactic acidosis, resolved HTN - PRNs availabe; BPs improved. This will need to be followed up outpatient. Code Status:Full VTE: lovenox 40mg BID Dispo: continue to work with PT, possible dc home vs TIPP Case discussed with Dr. Lux Addendum - Attending - Attending Attestation Date/Time: 08/14/19 1240 I personally evaluated the patient and discussed the management with Dr. Dodson I agree with the History, Examination, Assessment and Plan documented above with any addition or exceptions noted below - Patient without complaints. Wnts to go home. Afebrile VSS. A/P: 1) COVID pneumonia - still has oxygen requirement ; desats with ambulation during therapy. 2) Deconditioning- continue PT. 3) D/c planning- patient is uninsured; referred to TIPP program but no openings currently; will recheck on Thursday. Will also have case management check on options for home O2.
[2019-08-14] MEDS: predniSONE 20 MG TAB PO SCH (07:54)
[2019-08-14] MEDS: Enoxaparin Sodium 40 MG/0.4 ML SYRINGE SC SCH ×2 (07:54→20:53)
[2019-08-14] MEDS: Cefdinir 300 MG CAP PO SCH ×2 (07:55→20:53)
[2019-08-15 06:43] LABS: #Basophils 0.1 thou/uL (0.0-0.2); #Lymphocytes 1.8 thou/uL (1.20-3.40); #Monocytes 0.6 thou/uL (0.11-0.59); #Neutrophils 4.7 thou/uL (1.40-6.50); %Basophils 1.2 % (0.0-1.0); %Eosinophils 0.6 % (0.0-10.0); %Lymphocytes 25.1 % (21.0-51.0); %Monocytes 8.6 % (0.0-10.0); %Neutrophils 64.5 % (42.0-75.0); Hemoglobin 13.3 g/dL (14.0-18.0); Mean Corpuscular HGB CONC 32.6 g/dL (32.0-36.0); Mean Corpuscular Hemoglobin 30.5 pg (27.0-31.0); Mean Corpuscular Volume 93.6 fL (78.0-98.0); Mean Platelet Volume 7.8 fL (7.4-10.4); Platelet Count 314 thou/uL (130-400); RBC Distribution Width 12.9 % (11.5-14.5); Red Blood Cell (RBC) Count 4.36 mill/uL (4.70-6.10); White Blood Cell (WBC) Count 7.2 thou/uL (4.8-10.8)
[2019-08-15 07:03] LABS: ALT (SGPT) 117 U/L (8-55); AST (SGOT) 29 U/L (5-34); Albumin 3.4 g/dL (3.5-5.0); Alkaline Phosphatase 60 U/L (40-110); Anion Gap 12 mmol/L (10-20); BUN (Urea Nitrogen) 13 mg/dL (8.9-20.6); Calc. Creatinine Clearance 115 mL/min (70-130); Calcium 8.2 mg/dL (7.8-10.44); Carbon Dioxide 24 mmol/L (22-29); Chloride 105 mmol/L (98-107); Estimated GFR-MDRD Greater than 90; Globulin 2.7 g/dL (2.4-3.5); Glucose 98 mg/dL (70-105); Potassium 3.5 mmol/L (3.5-5.1); Protein, Total 6.1 g/dL (6.0-8.3); Sodium 137 mmol/L (136-145)
--- NOTE | 2019-08-15 07:03 | PDOC.FM ---
- Subjective Subjective: pt resting comfortably in bed, not on O2, no dyspnea. reports feeling strong and ready to go home. - Objective Vital Signs & Weight: Vital Signs (12 hours) Temp Pulse Resp BP Pulse Ox 08/15/19 04:00 98.0 F 100 18 111/75 96 08/15/19 00:38 98.1 F 93 18 106/73 95 08/14/19 21:45 98.8 F 100 16 110/76 97 08/14/19 20:00 98 Weight Admit Weight 80.467 kg Weight 72.1 kg Most Recent Monitor Data Heart Rate from ECG 95 NIBP 123/85 NIBP BP-Mean 97 Respiration from ECG 28 SpO2 98 I&O: 08/14/19 08/15/19 08/16/19 06:59 06:59 06:59 Intake Total 1600 188 Balance 1599 1879 Result Diagrams: 08/15/19 06:15 08/15/19 06:15 Phys Exam - Physical Examination Constitutional: NAD HEENT: moist MMs Neck: no JVD Respiratory: clear to auscultation bilateral Cardiovascular: no significant murmur Gastrointestinal: no distention Musculoskeletal: no edema Neurological: moves all 4 limbs Psychiatric: normal affect Skin: no rash Dx/Plan (1) Acute respiratory failure with hypoxia and hypercapnia Code(s): J96.01 - ACUTE RESPIRATORY FAILURE WITH HYPOXIA; J96.02 - ACUTE RESPIRATORY FAILURE WITH HYPERCAPNIA Status: Acute (2) COVID-19 Code(s): U07.1 - COVID-19 Status: Acute (3) Transaminitis Code(s): R74.0 - NONSPEC ELEV OF LEVELS OF TRANSAMNS & LACTIC ACID DEHYDRGNSE Status: Acute - Plan Plan: Acute hypoxic, hypercapnic respiratory failure requiring mechanical ventilation / COVID-19 pneumonia - COVID test POSITIVE 07/31, covid precautions. Re-swabbed on 08/12 and remains positive. - s/p plasma 5.3, tocilizumab 08/04, hydroxychloroquine (09/11 doses) 08/04 - Possible superimposed bacterial pneumonia - dc'd azithromycin and ceftriaxone. Procal downtrending. Transitioned to PO cefdinir 08/10 and prednisone on 08/11. - Prophylaxtic Lovenox 40mg BID; D-dimer >20 -> 19. - Self extubated 5/6; currently on NC and satting well. Try to ween as tolerated. - Pulmonology on board. Appreciate recommendations - Continue supportive care, tolerating PO, PT/OT 1-2 x daily to help gain strength - CM consulted - TIPP program will re-eval Deconditioned - PT/OT consulted. Transaminitis - likely 2/2 disease process Hypernatremia, resolved HASEEB, resolved Lactic acidosis, resolved HTN - PRNs availabe; BPs improved. This will need to be followed up outpatient. Code Status:Full VTE: lovenox 40mg BID Dispo: continue to work with PT, possible dc home vs TIPP Addendum - Attending - Attending Attestation Date/Time: 08/15/19 8683 I personally evaluated the patient and discussed the management with Dr. Ma. I agree with the History, Examination, Assessment and Plan documented above with any addition or exceptions noted below. Continue current meds. Continue therapy, working on possible placement.
[2019-08-15] MEDS: Cefdinir 300 MG CAP PO SCH ×2 (08:11→20:47)
[2019-08-15] MEDS: predniSONE 20 MG TAB PO SCH (08:11)
[2019-08-15] MEDS: Enoxaparin Sodium 40 MG/0.4 ML SYRINGE SC SCH ×2 (08:12→20:47)
--- NOTE | 2019-08-16 07:33 | PDOC.FM ---
- Subjective Subjective: pt resting comfortably in bed, not sob, denies fever - Objective Vital Signs & Weight: Vital Signs (12 hours) Temp Pulse Resp BP BP Pulse Ox 08/16/19 04:20 99.2 F 98 18 101/70 95 08/16/19 00:59 99.1 F 95 20 104/72 97 08/15/19 20:39 98.9 F 107 H 18 111/73 97 Weight Admit Weight 80.467 kg Weight 72.575 kg Most Recent Monitor Data Heart Rate from ECG 95 NIBP 123/85 NIBP BP-Mean 97 Respiration from ECG 28 SpO2 98 I&O: 08/15/19 08/16/19 08/17/19 06:59 06:59 06:59 Intake Total 1879 1550 Balance 1879 1550 Result Diagrams: 08/15/19 06:15 08/15/19 06:15 Phys Exam - Physical Examination Constitutional: NAD HEENT: moist MMs Neck: no JVD Respiratory: clear to auscultation bilateral Cardiovascular: no significant murmur Gastrointestinal: no distention Musculoskeletal: no edema Neurological: moves all 4 limbs Psychiatric: normal affect Skin: no rash Dx/Plan (1) Acute respiratory failure with hypoxia and hypercapnia Code(s): J96.01 - ACUTE RESPIRATORY FAILURE WITH HYPOXIA; J96.02 - ACUTE RESPIRATORY FAILURE WITH HYPERCAPNIA Status: Acute (2) COVID-19 Code(s): U07.1 - COVID-19 Status: Acute (3) Transaminitis Code(s): R74.0 - NONSPEC ELEV OF LEVELS OF TRANSAMNS & LACTIC ACID DEHYDRGNSE Status: Acute - Plan Plan: Acute hypoxic, hypercapnic respiratory failure requiring mechanical ventilation / COVID-19 pneumonia - COVID test POSITIVE 07/31, covid precautions. Re-swabbed on 08/12 and remains positive. - s/p plasma 5.3, tocilizumab 08/04, hydroxychloroquine (09/11 doses) 08/04 - Possible superimposed bacterial pneumonia - dc'd azithromycin and ceftriaxone. Procal downtrending. Transitioned to PO cefdinir 08/10 and prednisone on 08/11. - Prophylaxtic Lovenox 40mg BID; D-dimer >20 -> 19. - Self extubated 08/09; currently on NC and satting well. Try to ween as tolerated. - Pulmonology on board. Appreciate recommendations - Continue supportive care, tolerating PO, PT/OT 1-2 x daily to help gain strength - CM consulted - attempt to set up home O2 Deconditioned - PT/OT consulted. Transaminitis - likely 2/2 disease process Hypernatremia, resolved HASEEB, resolved Lactic acidosis, resolved HTN - PRNs availabe; BPs improved. This will need to be followed up outpatient. Code Status:Full VTE: lovenox 40mg BID Dispo: stable for DC with home O2 Addendum - Attending - Attending Attestation Date/Time: 08/16/19 4593 I personally evaluated the patient and discussed the management with Dr. Ma. I agree with the History, Examination, Assessment and Plan documented above with any addition or exceptions noted below. Patient stable. Continue therapy. CM working for possible [facility] rehab placement. Otherwise nearing stability for discharge.
[2019-08-16] MEDS: predniSONE 20 MG TAB PO SCH (07:54)
[2019-08-16] MEDS: Enoxaparin Sodium 40 MG/0.4 ML SYRINGE SC SCH ×2 (07:54→20:30)
[2019-08-16] MEDS: Cefdinir 300 MG CAP PO SCH ×2 (07:54→20:30)
[2019-08-16 14:16] VITALS: BMI 24.3
--- NOTE | 2019-08-17 07:23 | PDOC.FM ---
- Subjective Subjective: pt resting comfortably in bed, denies cp or dyspnea. no fevers - Objective Vital Signs & Weight: Vital Signs (12 hours) Temp Pulse Resp BP Pulse Ox 08/17/19 05:00 98.3 F 93 18 108/74 93 L 08/16/19 20:00 98.3 F 110 H 18 111/75 97 Weight Admit Weight 80.467 kg Weight 71 kg Most Recent Monitor Data Heart Rate from ECG 95 NIBP 123/85 NIBP BP-Mean 97 Respiration from ECG 28 SpO2 98 I&O: 08/16/19 08/17/19 08/18/19 06:59 06:59 06:59 Intake Total 1550 350 Balance 1550 350 Result Diagrams: 08/15/19 06:15 08/15/19 06:15 Phys Exam - Physical Examination Constitutional: NAD HEENT: moist MMs Neck: no JVD Gastrointestinal: no distention Musculoskeletal: pulses present Neurological: moves all 4 limbs Psychiatric: normal affect Skin: no rash Dx/Plan (1) Acute respiratory failure with hypoxia and hypercapnia Code(s): J96.01 - ACUTE RESPIRATORY FAILURE WITH HYPOXIA; J96.02 - ACUTE RESPIRATORY FAILURE WITH HYPERCAPNIA Status: Acute (2) COVID-19 Code(s): U07.1 - COVID-19 Status: Acute (3) Transaminitis Code(s): R74.0 - NONSPEC ELEV OF LEVELS OF TRANSAMNS & LACTIC ACID DEHYDRGNSE Status: Acute - Plan Plan: Acute hypoxic, hypercapnic respiratory failure requiring mechanical ventilation 2/2 COVID-19 pneumonia - COVID test POSITIVE 07/31, covid precautions. Re-swabbed on 08/12 and remains positive. - s/p plasma 5.3, tocilizumab 08/04, hydroxychloroquine (09/11 doses) 08/04 - Possible superimposed bacterial pneumonia - dc'd azithromycin and ceftriaxone. Procal downtrending. Transitioned to PO cefdinir 08/10 and prednisone on 08/11. - Prophylaxtic Lovenox 40mg BID; D-dimer >20 -> 19. - Self extubated 08/09; currently on NC and satting well. Try to ween as tolerated. - Pulmonology on board. Appreciate recommendations - Continue supportive care, tolerating PO, PT/OT 1-2 x daily to help gain strength - CM consulted - attempt to set up home O2 Deconditioned - PT/OT consulted. Transaminitis - likely 2/2 disease process Hypernatremia, resolved HASEEB, resolved Lactic acidosis, resolved HTN - PRNs availabe; BPs improved. This will need to be followed up outpatient. Code Status:Full VTE: lovenox 40mg BID Dispo: stable for DC with home O2 Addendum - Attending - Attending Attestation Date/Time: 08/17/19 1131 I personally evaluated the patient and discussed the management with Dr. Ma. I agree with the History, Examination, Assessment and Plan documented above with any addition or exceptions noted below. Patient stable. Nearing point of discharge. Continue therapy, working to see about getting him set up for outpatient O2 therapy and possible rehab.
[2019-08-17] MEDS: predniSONE 20 MG TAB PO SCH (08:27)
[2019-08-17] MEDS: Enoxaparin Sodium 40 MG/0.4 ML SYRINGE SC SCH ×2 (08:28→20:41)
[2019-08-17] MEDS: Cefdinir 300 MG CAP PO SCH ×2 (08:28→20:41)
--- NOTE | 2019-08-18 07:44 | PDOC.FM ---
- Subjective Subjective: pt resting comfortably in bed, denies sob/fever - Objective Vital Signs & Weight: Vital Signs (12 hours) Temp Pulse Resp BP Pulse Ox 08/18/19 05:00 98.4 F 106 H 18 111/78 94 L 08/17/19 20:00 97.9 F 109 H 18 107/75 95 Weight Admit Weight 80.467 kg Weight 70.8 kg Most Recent Monitor Data Heart Rate from ECG 95 NIBP 123/85 NIBP BP-Mean 97 Respiration from ECG 28 SpO2 98 I&O: 08/17/19 08/18/19 08/19/19 06:59 06:59 06:59 Intake Total 350 400 Balance 350 400 Result Diagrams: 08/15/19 06:15 08/15/19 06:15 Phys Exam - Physical Examination Constitutional: NAD HEENT: moist MMs Neck: no JVD Gastrointestinal: no distention Musculoskeletal: no edema Neurological: moves all 4 limbs Psychiatric: normal affect Skin: no rash Dx/Plan (1) Acute respiratory failure with hypoxia and hypercapnia Code(s): J96.01 - ACUTE RESPIRATORY FAILURE WITH HYPOXIA; J96.02 - ACUTE RESPIRATORY FAILURE WITH HYPERCAPNIA Status: Acute (2) COVID-19 Code(s): U07.1 - COVID-19 Status: Acute (3) Transaminitis Code(s): R74.0 - NONSPEC ELEV OF LEVELS OF TRANSAMNS & LACTIC ACID DEHYDRGNSE Status: Acute - Plan Plan: Acute hypoxic, hypercapnic respiratory failure requiring mechanical ventilation 2/2 COVID-19 pneumonia - COVID test POSITIVE 07/31, covid precautions. Re-swabbed on 08/12 and remains positive. - s/p plasma 5.3, tocilizumab 08/04, hydroxychloroquine (6/8 doses) 08/04 - Possible superimposed bacterial pneumonia - dc'd azithromycin and ceftriaxone. Procal downtrending. Transitioned to PO cefdinir 08/10 and prednisone on 08/11. dc omnicef after 7 days - Prophylaxtic Lovenox 40mg BID; D-dimer >20 -> 19. - Self extubated 08/09; currently on NC and satting well. Try to ween as tolerated. - Pulmonology on board. Appreciate recommendations - Continue supportive care, tolerating PO, PT/OT 1-2 x daily to help gain strength - CM consulted - attempt to set up home O2 Deconditioned - PT/OT consulted. Transaminitis - likely 2/2 disease process Hypernatremia, resolved HASEEB, resolved Lactic acidosis, resolved HTN - PRNs availabe; BPs improved. This will need to be followed up outpatient. Code Status:Full VTE: lovenox 40mg BID Dispo: stable for DC with home O2 Addendum - Attending - Attending Attestation Date/Time: 08/18/19 3759 I personally evaluated the patient and discussed the management with Dr. Ma. I agree with the History, Examination, Assessment and Plan documented above with any addition or exceptions noted below. Patient doing well. Counselling extensively on the need to work at home to improve his endurance. Home O2 being set up but hopefully will be good to dc home today. He is very stable for discharge.
[2019-08-18] MEDS: Enoxaparin Sodium 40 MG/0.4 ML SYRINGE SC SCH ×2 (07:49→20:56)
[2019-08-18] MEDS: predniSONE 20 MG TAB PO SCH (07:49)
[2019-08-18] MEDS: Cefdinir 300 MG CAP PO SCH ×2 (07:49→20:56)
--- NOTE | 2019-08-18 15:47 | EKG ---
Test Reason : Blood Pressure : / mmHG Vent. Rate : 110 BPM Atrial Rate : 110 BPM P-R Int : 124 ms QRS Dur : 080 ms QT Int : 334 ms P-R-T Axes : 053 063 004 degrees QTc Int : 452 ms Sinus tachycardia Otherwise normal ECG Confirmed by LEELEE KLINE DO ([id number]), clinical editor VICTORIANO MUNOZ ([id number] on 08/18/2019 3:47:28 PM Referred By: Confirmed By:LEELEE KLINE DO
[2019-08-19] MEDS: Enoxaparin Sodium 40 MG/0.4 ML SYRINGE SC SCH (08:05)
[2019-08-19] MEDS: predniSONE 20 MG TAB PO SCH (08:05)
[2019-08-19] MEDS: Cefdinir 300 MG CAP PO SCH (08:05)
[2019-08-19 10:01] VITALS: BP 109/78; TEMP 97.9
--- NOTE | 2019-08-20 00:47 | DIS ---
DATE OF ADMISSION: 08/05/2019 DATE OF DISCHARGE: 08/19/2019 ADMITTING ATTENDING: Matheus Verduzco MD DISCHARGE ATTENDING: Matheus Verduzco MD CONSULTS: Pulmonology, Ruben Moulton MD IMAGING: Chest x-ray throughout his hospitalization initially showed bilateral interstitial infiltrates that slowly resolved throughout hospitalization. DISCHARGE MEDICATIONS: None. DISCHARGE DIAGNOSIS: Acute hypoxic respiratory failure requiring mechanical ventilation secondary to COVID-19. SECONDARY DIAGNOSES: 1. Transaminitis. 2. Hypernatremia. 3. Acute kidney injury. 4. Lactic acidosis. 5. Hypertension. HISTORY OF PRESENT ILLNESS/HOSPITAL COURSE: Mr. Isabel is a 49-year-old male, who initially tested positive for COVID on 07/31 and presented to the emergency department three days later with altered mental status, worsening shortness of breath. The family reports that he had fever since his positive test at that time. En route to the emergency department, he decompensated at 61%, on room air non-rebreather improved to 91%. In the emergency department, he dropped to 1% and was intubated at that time, given fluid, Tylenol, and azithromycin in the emergency department and admitted to the ICU. In the ICU, he was started on Plaquenil and ceftriaxone as well. Inflammatory markers were obtained and were elevated. At that time, it was day 14 of symptoms. The patient was provided ventilatory support in the ICU. COVID test returned positive that was taken on 07/31. Result on 08/12 remained positive. The patient was given convalescent plasma on 08/06, tocilizumab on 08/04, had a total of eight doses of hydroxychloroquine. The patient eventually was extubated on 08/09, who required nasal cannula following slowly able to be discontinued on nasal cannula and was only requiring oxygen with moving around. Oxygen was set up at home. The patient was deemed stable for discharge on 08/17 due to documentation error and was not discharged until 08/18. DISCHARGE INSTRUCTIONS: 1. Location: Home with oxygen. 2. Diet: Regular. 3. Activity: As tolerated. 4. Establish with PCP in 1 to 2 weeks. Job ID: [id number] [id number]
== END 2019-08-19 14:49 | disposition home or self-care (01) | DRG 207 ==
LOC: ERS 10:46 → CCU 13:56 → T4-A 08-12 09:57
PROVIDERS: ADMIT Student in an Organized Health Care Education/Training Program; ATTEND Student in an Organized Health Care Education/Training Program
PROC: 0BH17EZ Insertion of Endotracheal Airway into Trachea, Via Natural or Artificial Opening (ICD-10-PCS; principal; 2019-08-05)
PROC: 5A1955Z Respiratory Ventilation, Greater than 96 Consecutive Hours (ICD-10-PCS; 2019-08-05)
PROC: 8E0ZXY6 Isolation (ICD-10-PCS; 2019-08-05)
DX: U07.1 COVID-19 (principal); J96.01 Acute respiratory failure with hypoxia; J96.02 Acute respiratory failure with hypercapnia; J12.89 Other viral pneumonia; E87.2 Acidosis; N17.9 Acute kidney failure, unspecified; E87.0 Hyperosmolality and hypernatremia; G93.40 Encephalopathy, unspecified; I10 Essential (primary) hypertension; R74.0 Nonspecific elevation of levels of transaminase and lactic acid dehydrogenase [LDH]; R73.9 Hyperglycemia, unspecified
CPT/HCPCS: 31500; 36415; 36430; 51702; 71045; 80053; 82805; 83036; 83605; 83735; 83880; 84145; 85007; 85025; 85027; 85379; 85384; 85520; 85610; 85652; 85730; 86140; 86850; 86900; 86901; 87040; 87635; 93005; 94002; 94003; 96360; 96365; 96366; 96368; 96375; 96376; 99292; J0360; J0456; J0696; J1650; J2060; J2704; J2920; J3010; J3262; J3490; J7050; J7512; S0028; U0003